=== PATIENT | female | born 1975 | race Caucasian/White ===

== ENCOUNTER 2018-07-28 14:53 | Inpatient (IN) | payer OTHER ==
--- NOTE | 2018-07-28 17:54 | PDOC ---
Attending Attestation - ED Attending Attestation I have performed the following: I have examined & evaluated the patient, The case was reviewed & discussed with the resident, I agree w/resident's findings & plan - Physicial Exam PE: 07/28/18 20:06 GENERAL: Well-appearing, well-nourished. No apparent distress. HEENT: Normocephalic, atraumatic. PERRL, EOM intact. CARDIOVASCULAR: Normal S1, S2. Regular rate and rhythm. PULMONARY: Clear to auscultation bilaterally. +ABDOMEN: Protuberant with mildly erythematous panis. Soft, non-distended, non-tender. +EXTREMITIES: Left thigh: Extensive nonhealing left thigh wound with foul-smelling and purulent drainage. Extensive dry skin on blt LE with nonhealing ulcers on left lower calf. SKIN: Warm, dry. No rash NEUROLOGICAL: No focal neurological deficits. <Cody Torres - Last Filed: 07/28/18 20:15> - Resident Resident Name: Tomi Sauer - HPI HPI: 07/28/18 18:05 The patient is a 43 year old female, with a significant past medical history of morbid obesity, who presents to the emergency department from [facility] for complaint of an open, non healing wound to left lower extremity for about a month. She states she is on chronic Abx since March 2018. She states there is drainage and a foul odor to the wound. The patient denies chest pain, shortness of breath, headache and dizziness. The patient denies fever, chills, nausea, vomit, diarrhea and constipation. The patient denies dysuria, frequency, urgency and hematuria. Allergies: NKDA - Medical Decision Making 07/28/18 21:42 this pt has a nonhealing leg wound that had been treated by the wound care nurse at [facility] but there has been no improvement pt needs ID consult, IV antibiotics <Daniela Moore - Last Filed: 07/28/18 21:43> Attestations - Attestations 07/28/18 20:10 Documentation prepared by Cody Torres, acting as medical grade shoemaker for Daniela Moore MD. <Cody Torres - Last Filed: 07/28/18 20:15>
[2018-07-28] MEDS ORDERED: BACITRACIN 0.9 GM PACKET ONE (17:57)
[2018-07-28] MEDS ORDERED: CLINDAMYCIN 900 MG PREMIX IVPB 900 MG/50 ML BAG IVPB ONE ×2 (18:23→18:40)
[2018-07-28 18:28] LABS: BASO % 0.9 % (0-2.0); EOS % 1.5 % (0-4.5); HEMATOCRIT 33.9 % (32.4-45.2); HEMOGLOBIN 11.2 GM/dL (10.7-15.3); LYMPH % 26.8 % (8-40); MCHC 32.9 g/dl (32.0-36.0); MEAN CELL VOLUME 88.2 fl (80-96); MONO % 7.6 % (3.8-10.2); NEUT % 63.2 % (42.8-82.8); PLATELET COUNT 316 K/MM3 (134-434); RBC 3.85 M/mm3 (3.60-5.2); RDW 17.2 % (11.6-15.6); WHITE BLOOD COUNT 10.9 K/mm3 (4.0-10.0)
[2018-07-28] MEDS ORDERED: AZTREONAM 2 GM in DEXTROSE 5%-WATER 100 ML IVPB SCH (18:30)
[2018-07-28 19:00] LABS: ALBUMIN 2.5 g/dl (3.4-5.0); ALK PHOS 104 U/L (45-117); ANION GAP 6 MMOL/L (8-16); BILIRUBIN,TOTAL 0.2 mg/dL (0.2-1); BLOOD UREA NITROGEN 18 mg/dL (7-18); CALCIUM 8.6 mg/dL (8.5-10.1); CHLORIDE 94 mmol/L (98-107); CO2 36 mmol/L (21-32); CREATININE 0.7 mg/dL (0.55-1.3); GLUCOSE,RANDOM 130 mg/dL (74-106); POTASSIUM 5.2 mmol/L (3.5-5.1); SGOT/AST 21 U/L (15-37); SGPT/ALT 26 U/L (13-61); SODIUM 136 mmol/L (136-145); TOT PROT 6.4 g/dl (6.4-8.2)
[2018-07-28] MEDS ORDERED: ACETAMINOPHEN 500 MG TABLET (FP) PO STA (20:14)
[2018-07-28] MEDS ORDERED: ACETAMINOPHEN 325 MG TABLET (FP) ONE (20:16)
[2018-07-28] MEDS: AZTREONAM 2 GM in DEXTROSE 5%-WATER - 100 ML IVPB SCH (20:25)
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
[2018-07-28 22:12] LABS: URINE APPEARANCE SLCLOUDY; URINE BILIRUBIN NEGATIVE (<2.0 mg/dL); URINE COLOR AMBER; URINE GLUCOSE (UA) NEGATIVE (NEGATIVE); URINE KETONE TRACE (NEGATIVE); URINE LEUK ESTERASE 1+ (NEGATIVE); URINE NITRITE NEGATIVE (NEGATIVE); URINE PROTEIN 1+ (NEGATIVE); URINE UROBILINOGEN NEGATIVE mg/dL (0.2-1.0)
[2018-07-28 22:19] LABS: EPI CELLS MODERATE /HPF (FEW); URINE MUCUS MODERATE
[2018-07-28] MEDS ORDERED: ACETAMINOPHEN 325 MG TABLET (FP) PO PRN (23:24)
[2018-07-28] MEDS ORDERED: PATIENT'S OWN MEDICATION (NON-FORMULARY) (Cholecalciferol (Vitamin D3) [Vitamin D3] 50,000 PO SCH (23:30)
[2018-07-28] MEDS ORDERED: IBUPROFEN 200 MG TABLET PO SCH (23:30)
[2018-07-28] MEDS ORDERED: ASCORBIC ACID 250 MG TABLET (FP) PO SCH (23:30)
[2018-07-28] MEDS ORDERED: BACLOFEN 10 MG TABLET (FP) ONE (23:57)
[2018-07-28] MEDS ORDERED: DOCUSATE SODIUM 100 MG CAPSULE (FP) PO ONE (23:57)
[2018-07-28] MEDS ORDERED: HEPARIN NA (PORCINE) 5,000 UNITS/ML 1ML VIAL ONE (23:57)
[2018-07-29] MEDS ORDERED: IBUPROFEN 200 MG TABLET PO PRN (00:03)
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
[2018-07-29] MEDS: HEPARIN NA (PORCINE) 5,000 UNITS/ML 1ML VIAL SQ SCH ×4 (00:25→22:32)
[2018-07-29] MEDS: DIVALPROEX NA *ER* EXTEND REL 250 MG TABLET.SA PO SCH ×3 (00:25→12:10)
[2018-07-29] MEDS: BACLOFEN 10 MG TABLET (FP) PO SCH ×4 (00:45→22:33)
[2018-07-29] MEDS: DOCUSATE SODIUM 100 MG CAPSULE (FP) PO SCH ×3 (00:46→22:32)
[2018-07-29] MEDS: LURASIDONE HCL 20 MG TABLET PO SCH (02:16)
[2018-07-29] MEDS: AZTREONAM 2 GM in DEXTROSE 5%-WATER - 100 ML IVPB SCH ×2 (02:17→11:07)
[2018-07-29] MEDS ORDERED: LEVOTHYROXINE NA 25 MCG TABLET (FP) ONE (06:43)
[2018-07-29] MEDS ORDERED: HEPARIN NA (PORCINE) 5,000 UNITS/ML 1ML VIAL ONE (06:43)
[2018-07-29] MEDS ORDERED: CLINDAMYCIN 600MG PREMIX IVPB 600 MG/50 ML BAG IVPB ONE ×2 (06:44→10:39)
[2018-07-29] MEDS: LEVOTHYROXINE NA 50 MCG TABLET (FP) PO SCH (06:45)
[2018-07-29] MEDS: CLINDAMYCIN 600MG PREMIX IVPB 600 MG/50 ML BAG IVPB SCH ×3 (06:45→19:20)
[2018-07-29] MEDS: ALBUTEROL SO4 2.5/IPRATROPIUM 0.5 INH SOL 3 ML VIAL.NEB. NEB SCH ×4 (08:46→21:00)
[2018-07-29] MEDS ORDERED: PATIENT'S OWN MEDICATION (NON-FORMULARY) (Cholecalciferol (Vitamin D3) [Vitamin D3] 50,000 PO SCH (09:00)
[2018-07-29] MEDS ORDERED: LACTOBACILLUS ACIDOPHILUS 1 TABLET PO SCH (10:00)
[2018-07-29] MEDS ORDERED: FUROSEMIDE 40 MG TABLET (FP) PO SCH (10:00)
[2018-07-29] MEDS ORDERED: BUDESONIDE/FORMETEROL FUMARATE 160/4.5 mcg INHALER IH SCH (10:00)
[2018-07-29] MEDS ORDERED: ASCORBIC ACID 250 MG TABLET (FP) PO SCH (10:00)
[2018-07-29] MEDS ORDERED: LURASIDONE HCL 20 MG TABLET PO SCH (10:00)
[2018-07-29] MEDS ORDERED: ALLOPURINOL 300 MG TABLET (FP) PO SCH (10:00)
--- NOTE | 2018-07-29 10:05 | PN ---
Progress Note, Physician Chief Complaint: Examined pt in ER Has pain in left leg events noted was on Tigecycline and [place] has a midline on rt arm ' - Current Medication List Current Medications: Active Medications Acetaminophen (Tylenol -) 650 mg PO Q6H PRN PRN Reason: PAIN LEVEL 6-10 Albuterol/Ipratropium (Duoneb -) 1 amp NEB RQID [facility] Last Admin: 07/29/18 08:46 Dose: Not Given Allopurinol (Zyloprim -) 300 mg PO DAILY@1630 [facility] Aripiprazole (Abilify) 10 mg PO DAILY [facility] Ascorbic Acid (Vitamin C -) 250 mg PO We@1000 [facility] Atorvastatin Calcium (Lipitor -) 10 mg PO HS [facility] Baclofen (Lioresal -) 10 mg PO TID [facility] Last Admin: 07/29/18 06:45 Dose: 10 mg Budesonide/Formoterol Fumarate (Symbicort 160/4.5mcg -) 1 puff IH BID [facility] Divalproex Sodium (Depakote *Er* -) 250 mg PO BID [facility] Last Admin: 07/29/18 00:25 Dose: 250 mg Docusate Sodium (Colace -) 100 mg PO BID [facility] Last Admin: 07/29/18 00:46 Dose: Not Given Furosemide (Lasix -) 80 mg PO DAILY [facility] Heparin Sodium (Porcine) (Heparin -) 5,000 unit SQ TID [facility] Last Admin: 07/29/18 06:45 Dose: 5,000 unit Hydrochlorothiazide (Hctz -) 12.5 mg PO DAILY [facility] Aztreonam 2 gm/ Dextrose 100 mls @ 200 mls/hr IVPB Q8H-IV [facility] Stop: 07/29/18 10:29 Last Admin: 07/29/18 02:17 Dose: 200 mls/hr Aztreonam 2 gm/ Dextrose 100 mls @ 100 mls/hr IVPB Q8H-IV [facility]; Protocol Clindamycin Phosphate (Cleocin 600 Mg Premix Ivpb -) 600 mg in 50 mls @ 100 mls /hr IVPB Q8H-IV [facility]; Protocol Last Admin: 07/29/18 06:45 Dose: 100 mls/hr Ibuprofen (Advil -) 200 mg PO BID PRN PRN Reason: PAIN LEVEL 7 - 10 Lactobacillus Acidophilus (Bacid -) 1 tab PO DAILY@1630 [facility] Levothyroxine Sodium (Synthroid -) 50 mcg PO DAILY@0700 [facility] Last Admin: 07/29/18 06:45 Dose: 50 mcg Lurasidone HCl (Latuda -) 60 mg PO DAILY@1800 [facility] Last Admin: 07/29/18 02:16 Dose: 60 mg Metoprolol Tartrate (Lopressor -) 25 mg PO DAILY [facility] Non-Formulary Medication (Cholecalciferol (Vitamin D3) [Vitamin D3]) 50,000 units PO WEEKLY [facility] Ranitidine HCl (Zantac -) 150 mg PO DAILY [facility] Senna (Senna -) 2 tab PO HS [facility] - Objective Vital Signs: Vital Signs Temperature 97.3 F L 07/29/18 07:22 Pulse Rate 70 07/29/18 07:22 Respiratory Rate 15 07/29/18 07:22 Blood Pressure 148/84 07/29/18 07:22 O2 Sat by Pulse Oximetry (%) 100 07/29/18 07:40 Constitutional: Yes: No Distress, Calm Cardiovascular: Yes: Regular Rate and Rhythm Respiratory: Yes: Diminished Gastrointestinal: Yes: Normal Bowel Sounds, Soft, Abdomen, Obese. No: Tenderness Extremities: Yes: Other (lymphedema+ B/L. open wound left leg , erythema, foul smelling discharge) Edema: Yes Neurological: Yes: Alert, Oriented Labs: CBC, BMP 07/28/18 18:16 Problem List - Problems (1) Diabetes type 2, uncontrolled Code(s): E11.65 - TYPE 2 DIABETES MELLITUS WITH HYPERGLYCEMIA (2) Bipolar 2 disorder, major depressive episode Code(s): F31.81 - BIPOLAR II DISORDER (3) Hyperlipidemia Code(s): E78.5 - HYPERLIPIDEMIA, UNSPECIFIED (4) Hypothyroid Code(s): E03.9 - HYPOTHYROIDISM, UNSPECIFIED (5) Leg wound, left Code(s): S81.802A - UNSPECIFIED OPEN WOUND, LEFT LOWER LEG, INITIAL ENCOUNTER (6) Non-healing wound Code(s): LYG5222 - (7) Cellulitis Code(s): L03.90 - CELLULITIS, UNSPECIFIED Qualifiers: Site of cellulitis: trunk Site of cellulitis of trunk: abdominal wall Qualified Code(s): L03.311 - Cellulitis of abdominal wall (8) HTN (hypertension) Code(s): I10 - ESSENTIAL (PRIMARY) HYPERTENSION (9) Obesities, morbid Code(s): E66.01 - MORBID (SEVERE) OBESITY DUE TO EXCESS CALORIES Assessment/Plan PLAN Cultures done ID eval IV antibiotics Wound care evaluation off loading that side she has new diabetes- A1C 7.2- will start metformin, check BGM Add Bacid continue with meds
[2018-07-29 10:17] LABS: ALBUMIN 2.4 g/dl (3.4-5.0); ALK PHOS 96 U/L (45-117); ANION GAP 6 MMOL/L (8-16); BILIRUBIN,TOTAL 0.2 mg/dL (0.2-1); BLOOD UREA NITROGEN 18 mg/dL (7-18); CALCIUM 7.8 mg/dL (8.5-10.1); CHLORIDE 98 mmol/L (98-107); CHOLESTEROL 165 mg/dL (50-200); CO2 35 mmol/L (21-32); CREATININE 0.6 mg/dL (0.55-1.3); GLUCOSE,RANDOM 155 mg/dL (74-106); HDL CHOLESTEROL 45 mg/dL (40-60); MAGNESIUM 2.3 mg/dL (1.8-2.4); N-TERMINAL BNP 56.9 pg/ml (5-125); PHOSPHOROUS 4.5 mg/dL (2.5-4.9); SGOT/AST 19 U/L (15-37); SGPT/ALT 21 U/L (13-61); SODIUM 138 mmol/L (136-145); TOT PROT 6.3 g/dl (6.4-8.2); TRIGLYCERIDES 218 mg/dL (0-150)
[2018-07-29] MEDS: ARIPiprazole 10 MG TABLET PO SCH (10:47)
[2018-07-29] MEDS: RANITIDINE HCL 150 MG TABLET (FP) PO SCH (10:47)
[2018-07-29] MEDS ORDERED: AZTREONAM 2 GM in DEXTROSE 5%-WATER 100 ML IVPB ONE (11:00)
[2018-07-29] MEDS: BUDESONIDE/FORMETEROL FUMARATE 160/4.5 mcg INHALER IH SCH ×2 (11:07→22:30)
[2018-07-29 11:33] LABS: BASO % 0.7 % (0-2.0); EOS % 2.4 % (0-4.5); HEMATOCRIT 30.7 % (32.4-45.2); LYMPH % 32.5 % (8-40); MCH 28.5 pg (25.7-33.7); MCHC 32.5 g/dl (32.0-36.0); MEAN CELL VOLUME 87.5 fl (80-96); MEAN PLT VOLUME 7.8 fl (7.5-11.1); MONO % 9.1 % (3.8-10.2); NEUT % 55.3 % (42.8-82.8); PLATELET COUNT 281 K/MM3 (134-434); RBC 3.51 M/mm3 (3.60-5.2); RDW 17.2 % (11.6-15.6); WHITE BLOOD COUNT 6.8 K/mm3 (4.0-10.0)
[2018-07-29 11:48] LABS: PROTHROMBIN TIME (PATIENT) 11.8 SEC (9.7-13.0)
[2018-07-29 11:50] LABS: ACTIVATED PTT 30.5 SECONDS (25.2-36.5)
--- NOTE | 2018-07-29 12:39 | EKG ---
Test Reason : Blood Pressure : / mmHG Vent. Rate : 075 BPM Atrial Rate : 258 BPM P-R Int : 000 ms QRS Dur : 108 ms QT Int : 378 ms P-R-T Axes : 000 082 070 degrees QTc Int : 422 ms ACCELERATED JUNCTIONAL RHYTHM ABNORMAL ECG WHEN COMPARED WITH ECG OF 15-MAR-2015 12:35, JUNCTIONAL RHYTHM HAS REPLACED SINUS RHYTHM NONSPECIFIC T WAVE ABNORMALITY NO LONGER EVIDENT IN INFERIOR LEADS Confirmed by CLAUDETTE BURRIS, ALEC ([id number]) on 07/29/2018 12:39:33 PM Referred By: Confirmed By:ALEC WILKINS MD
[2018-07-29] MEDS: DIVALPROEX SODIUM 250 MG TABLET E.C. PO SCH ×2 (12:59→22:32)
[2018-07-29] MEDS ORDERED: ACETAMINOPHEN 325 MG TABLET (FP) ONE (13:04)
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
[2018-07-29] MEDS: ACETAMINOPHEN 325 MG TABLET (FP) PO PRN (13:07)
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
[2018-07-29] MEDS: metFORMIN HCL 500 MG TABLET (FP) PO SCH (15:46)
[2018-07-29] MEDS: HYDROCHLOROTHIAZIDE 12.5 MG CAPSULE (FP) PO SCH (15:46)
[2018-07-29] MEDS: ALLOPURINOL 300 MG TABLET (FP) PO SCH (15:46)
[2018-07-29] MEDS: FUROSEMIDE 40 MG/4 ML INJECTABLE VIAL IVPUSH SCH (15:47)
[2018-07-29] MEDS: METOPROLOL TARTRATE 25 MG TABLET (FP) PO SCH (15:48)
[2018-07-29] MEDS: LACTOBACILLUS ACIDOPHILUS 1 TABLET PO SCH (15:49)
--- NOTE | 2018-07-29 16:55 | PN ---
Progress Note (short form) - Note Progress Note: ID consult dictated 605 pound lady- bed bound sent from [place] with erythema of the LLE for last several weeks and nonhealing wound she is allergic to penicillin (anaphylaxis) she has had intermittent cellulitis of the left leg since Thanks she has been on intermittent antiibotics since that time most recently she has been on tygacil and ceftriaxone- the original order date is 07/11 stopped and restarted about 10 days ago she reports high grade fevers several weeks ago and blisters on the leg- the ceftriaxone and tygacil were resumed and she reports the leg erythema is better she notes a rash on her abdomen and thighs that started yesterday at the ma it is itchy she was sent for evaluation of the wounds I spoke with Dr Mccurdy who [place] he reports she gets intermittent erythema of the left leg and is placed on tygacil and ceftriaxone with improvement several weeks after the antibioitics are stopped the erythema recurs and the antibiotics are restarted IBS with chronic diarrhea no fevers history of MRSA continue contact isolation recurrent cellulitis chronic leg wound morbid obesity clindamycin for now f/u cultures f/u wound care reccd having diarrhea- check cdiff- history antibiotic use but also has IBS rash- ?drug rash,?fungal, lotrimin cream Problem List - Problems (1) Cellulitis Code(s): L03.90 - CELLULITIS, UNSPECIFIED Qualifiers: Site of cellulitis: trunk Site of cellulitis of trunk: abdominal wall Qualified Code(s): L03.311 - Cellulitis of abdominal wall (2) Non-healing wound Code(s): ZGM0773 - (3) Obesities, morbid Code(s): E66.01 - MORBID (SEVERE) OBESITY DUE TO EXCESS CALORIES (4) Penicillin allergy Code(s): Z88.0 - ALLERGY STATUS TO PENICILLIN
[2018-07-29] MEDS ORDERED: FENTANYL PATCH WASTE MC PRN (18:37)
[2018-07-29] MEDS ORDERED: fentaNYL 25mcg/hr PATCH.TD72 TD SCH (18:45)
[2018-07-29] MEDS ORDERED: PT OWN MED DRAWER 7, Y5N ONE (19:17)
[2018-07-29] MEDS ORDERED: SENNOSIDES 8.6MG TABLET (FP) PO SCH (22:00)
[2018-07-29] MEDS ORDERED: ATORVASTATIN CA 10 MG TABLET (FP) PO SCH (22:00)
[2018-07-29] MEDS: CLOTRIMAZOLE 1% 10 ML TOPICAL SOLUTION TP SCH ×2 (22:30→23:07)
[2018-07-30] MEDS: ACETAMINOPHEN 325 MG TABLET (FP) PO PRN ×2 (00:15→10:45)
[2018-07-30] MEDS: CLINDAMYCIN 600MG PREMIX IVPB 600 MG/50 ML BAG IVPB SCH ×3 (02:36→18:06)
[2018-07-30] MEDS: INSULIN SLIDING SCALE (NOVOLOG) 1 VIAL SQ SCH ×3 (06:29→18:06)
[2018-07-30] MEDS: HEPARIN NA (PORCINE) 5,000 UNITS/ML 1ML VIAL SQ SCH ×3 (06:36→21:12)
[2018-07-30] MEDS: FUROSEMIDE 40 MG/4 ML INJECTABLE VIAL IVPUSH SCH ×2 (06:36→14:18)
[2018-07-30] MEDS: metFORMIN HCL 500 MG TABLET (FP) PO SCH ×2 (06:37→16:23)
[2018-07-30] MEDS: BACLOFEN 10 MG TABLET (FP) PO SCH ×3 (06:37→21:12)
[2018-07-30] MEDS: LEVOTHYROXINE NA 50 MCG TABLET (FP) PO SCH (06:37)
[2018-07-30] MEDS: ALBUTEROL SO4 2.5/IPRATROPIUM 0.5 INH SOL 3 ML VIAL.NEB. NEB SCH ×4 (08:00→20:47)
[2018-07-30] MEDS ORDERED: PT OWN MED DRAWER 7, Y5N ONE ×2 (09:52→18:54)
[2018-07-30] MEDS: HYDROCHLOROTHIAZIDE 12.5 MG CAPSULE (FP) PO SCH (10:16)
[2018-07-30] MEDS: METOPROLOL TARTRATE 25 MG TABLET (FP) PO SCH (10:16)
[2018-07-30] MEDS: RANITIDINE HCL 150 MG TABLET (FP) PO SCH (10:16)
[2018-07-30] MEDS: DIVALPROEX SODIUM 250 MG TABLET E.C. PO SCH ×2 (10:16→21:12)
[2018-07-30] MEDS: ARIPiprazole 10 MG TABLET PO SCH (10:17)
[2018-07-30] MEDS: BUDESONIDE/FORMETEROL FUMARATE 160/4.5 mcg INHALER IH SCH ×2 (10:18→22:40)
[2018-07-30] MEDS: DOCUSATE SODIUM 100 MG CAPSULE (FP) PO SCH ×2 (10:18→21:15)
[2018-07-30] MEDS: CLOTRIMAZOLE 1% 10 ML TOPICAL SOLUTION TP SCH ×2 (10:19→22:41)
--- NOTE | 2018-07-30 11:08 | PN ---
Progress Note (short form) - Note Progress Note: complains of pain on the left leg, Tylenol not helping and the fentanyl patch is not helping either Vital Signs - 24 hr 07/29/18 07/29/18 07/29/18 14:23 15:00 21:00 Temperature 97.3 F L 97.7 F Pulse Rate 88 Pulse Rate [ 90 Right Radial] Respiratory 18 20 20 Rate Blood Pressure 106/72 Blood Pressure 135/90 [Left Arm] O2 Sat by Pulse 100 98 Oximetry (%) 07/29/18 07/30/18 07/30/18 22:00 01:28 06:00 Temperature 97.8 F 98.2 F 97.9 F Pulse Rate 86 88 71 Pulse Rate [ Right Radial] Respiratory 20 20 20 Rate Blood Pressure 103/61 126/70 135/55 L Blood Pressure [Left Arm] O2 Sat by Pulse Oximetry (%) 07/30/18 07/30/18 09:00 10:00 Temperature 98.6 F Pulse Rate 80 Pulse Rate [ Right Radial] Respiratory 20 Rate Blood Pressure 126/79 Blood Pressure [Left Arm] O2 Sat by Pulse 99 Oximetry (%) Current Medications Generic Name Dose Route Start Last Admin Trade Name Freq PRN Reason Stop Dose Admin Acetaminophen 650 mg 07/29/18 00:02 07/30/18 10:45 Tylenol - PO 650 mg Q6H PRN Administration PAIN LEVEL 6-10 Albuterol/Ipratropium 1 amp 07/29/18 08:00 07/29/18 21:00 Duoneb - NEB Not Given RQID [facility] Allopurinol 300 mg 07/29/18 01:41 07/29/18 15:46 Zyloprim - PO 300 mg DAILY@1630 [facility] Administration Aripiprazole 10 mg 07/29/18 10:00 07/30/18 10:17 Abilify PO 10 mg DAILY [facility] Administration Ascorbic Acid 250 mg 07/29/18 10:00 07/29/18 10:47 Vitamin C - PO 250 mg We@1000 [facility] Administration Atorvastatin Calcium 10 mg 07/29/18 22:00 07/29/18 22:34 Lipitor - PO 10 mg HS [facility]ERSON Administration Baclofen 10 mg 07/28/18 23:30 07/30/18 06:37 Lioresal - PO 10 mg TID [facility] Administration Budesonide/Formoterol Fumarate 1 puff 07/29/18 10:00 07/30/18 10:18 Symbicort 160/4.5mcg - IH 1 puff BID [facility] Administration Clotrimazole 1 applic 07/29/18 22:00 07/30/18 10:19 Clotrimazole TP 1 applic BID [facility] Administration Diphenhydramine HCl 25 mg 07/30/18 11:23 Benadryl - PO Q6H PRN FOR ITCHING Divalproex Sodium 250 mg 07/29/18 12:15 07/30/18 10:16 Depakote - PO 250 mg BID [facility] Administration Docusate Sodium 100 mg 07/28/18 23:45 07/30/18 10:18 Colace - PO Not Given BID [facility] Fentanyl 1 patch 07/29/18 18:45 07/29/18 19:20 Duragesic 25mcg Patch - TD 08/05/18 18:37 1 patch Q72H [facility] Administration Furosemide 40 mg 07/29/18 14:00 07/30/18 06:36 Lasix Injection - IVPUSH 40 mg BID@0600,1400 [facility] Administration Heparin Sodium (Porcine) 5,000 unit 07/28/18 23:45 07/30/18 06:36 Heparin - SQ 5,000 unit TID [facility] Administration Hydrochlorothiazide 12.5 mg 07/29/18 14:00 07/30/18 10:16 Hctz - PO 12.5 mg DAILY [facility] Administration Clindamycin Phosphate 600 mg in 50 mls @ 100 mls/hr 07/29/18 02:00 07/30/18 10:17 Cleocin 600 Mg Premix Ivpb - IVPB 100 mls/hr Q8H-IV [facility] Administration Protocol Ibuprofen 200 mg 07/29/18 00:03 07/29/18 15:52 Advil - PO 200 mg BID PRN Administration PAIN LEVEL 7 - 10 Insulin Aspart 1 vial 07/29/18 16:30 07/30/18 06:29 Novolog Vial Sliding Scale - SQ Not Given TIDAC [facility] Protocol Lactobacillus Acidophilus 1 tab 07/29/18 01:44 07/29/18 15:49 Bacid - PO 1 tab DAILY@1630 [facility] Administration Levothyroxine Sodium 50 mcg 07/29/18 07:00 07/30/18 06:37 Synthroid - PO 50 mcg DAILY@0700 [facility] Administration Lurasidone HCl 60 mg 07/29/18 01:45 07/29/18 02:16 Latuda - PO 60 mg DAILY@1800 [facility] Administration Metformin HCl 500 mg 07/29/18 16:30 07/30/18 06:37 Glucophage - PO 500 mg BID@0700,1630 [facility] Administration Metoprolol Tartrate 25 mg 07/29/18 14:00 07/30/18 10:16 Lopressor - PO 25 mg DAILY [facility] Administration Miscellaneous 1 each 07/29/18 18:37 Duragesic Patch Waste MC PRN PRN PAIN Non-Formulary Medication 50,000 units 07/29/18 09:00 Cholecalciferol (Vitamin D3) [Vitamin D3] PO WEEKLY [facility] Oxycodone HCl 10 mg 07/30/18 11:23 Roxicodone - PO Q6H PRN PAIN LEVEL 6-10 Ranitidine HCl 150 mg 07/29/18 10:00 07/30/18 10:16 Zantac - PO 150 mg DAILY [facility] Administration Senna 2 tab 07/29/18 22:00 07/29/18 22:36 Senna - PO Not Given HS [facility] Laboratory Results - last 24 hr 07/30/18 07/30/18 05:25 12:11 POC Glucometer 136 185 S1 and S2 regular Lungs decreased Patient is morbidly obese Abdomen is soft, obese nontender Lymphedema bilaterally, dressing noted on the left leg Plan IV antibiotics per infectious disease Surgery rebound noted, no debridement or any other interventions, dressing changes noted Add oxycodone for pain relief Continued medications DVT prophylaxis Patient has chronic diarrhea, suffers from irritable bowel syndrome Problem List - Problems (1) Diabetes type 2, uncontrolled Code(s): E11.65 - TYPE 2 DIABETES MELLITUS WITH HYPERGLYCEMIA (2) Bipolar 2 disorder, major depressive episode Code(s): F31.81 - BIPOLAR II DISORDER (3) Hyperlipidemia Code(s): E78.5 - HYPERLIPIDEMIA, UNSPECIFIED (4) Hypothyroid Code(s): E03.9 - HYPOTHYROIDISM, UNSPECIFIED (5) Leg wound, left Code(s): S81.802A - UNSPECIFIED OPEN WOUND, LEFT LOWER LEG, INITIAL ENCOUNTER (6) Non-healing wound Code(s): [id number] - (7) Cellulitis Code(s): L03.90 - CELLULITIS, UNSPECIFIED Qualifiers: Site of cellulitis: trunk Site of cellulitis of trunk: abdominal wall Qualified Code(s): L03.311 - Cellulitis of abdominal wall (8) HTN (hypertension) Code(s): I10 - ESSENTIAL (PRIMARY) HYPERTENSION (9) Obesities, morbid Code(s): E66.01 - MORBID (SEVERE) OBESITY DUE TO EXCESS CALORIES
[2018-07-30] MEDS ORDERED: oxyCODONE HCL 5 MG TABLET PO PRN (11:23)
[2018-07-30] MEDS ORDERED: diphenhydrAMINE HCL 25 MG CAPSULE (FP) PO PRN (11:23)
[2018-07-30] MEDS: ALLOPURINOL 300 MG TABLET (FP) PO SCH (16:23)
[2018-07-30] MEDS: LACTOBACILLUS ACIDOPHILUS 1 TABLET PO SCH (16:23)
[2018-07-30] MEDS: LURASIDONE HCL 20 MG TABLET PO SCH (18:18)
[2018-07-30] MEDS ORDERED: IBUPROFEN 200 MG TABLET PO PRN (18:53)
[2018-07-30] MEDS ORDERED: FENTANYL PATCH WASTE MC PRN (18:53)
[2018-07-30] MEDS: oxyCODONE HCL 5 MG TABLET PO PRN (20:49)
[2018-07-30] MEDS: ATORVASTATIN CA 10 MG TABLET (FP) PO SCH (21:12)
[2018-07-30] MEDS: SENNOSIDES 8.6MG TABLET (FP) PO SCH (21:15)
[2018-07-31] MEDS: diphenhydrAMINE HCL 25 MG CAPSULE (FP) PO PRN ×4 (00:17→22:05)
[2018-07-31] MEDS: CLINDAMYCIN 600MG PREMIX IVPB 600 MG/50 ML BAG IVPB SCH ×3 (01:31→17:29)
[2018-07-31] MEDS: BACLOFEN 10 MG TABLET (FP) PO SCH ×3 (05:43→21:30)
[2018-07-31] MEDS: FUROSEMIDE 40 MG/4 ML INJECTABLE VIAL IVPUSH SCH ×2 (05:43→13:26)
[2018-07-31] MEDS: HEPARIN NA (PORCINE) 5,000 UNITS/ML 1ML VIAL SQ SCH ×3 (05:43→21:35)
[2018-07-31] MEDS: oxyCODONE HCL 5 MG TABLET PO PRN ×3 (05:51→20:00)
[2018-07-31] MEDS: LEVOTHYROXINE NA 50 MCG TABLET (FP) PO SCH (06:25)
[2018-07-31] MEDS ORDERED: metFORMIN HCL 500 MG TABLET (FP) PO SCH (07:00)
[2018-07-31] MEDS: INSULIN SLIDING SCALE (NOVOLOG) 1 VIAL SQ SCH ×3 (07:16→16:10)
[2018-07-31 07:41] LABS: BASO % 0.8 % (0-2.0); EOS % 2.1 % (0-4.5); HEMATOCRIT 30.6 % (32.4-45.2); HEMOGLOBIN 10.2 GM/dL (10.7-15.3); LYMPH % 38.2 % (8-40); MCH 29.6 pg (25.7-33.7); MCHC 33.4 g/dl (32.0-36.0); MEAN CELL VOLUME 88.8 fl (80-96); MONO % 9.2 % (3.8-10.2); NEUT % 49.7 % (42.8-82.8); PLATELET COUNT 288 K/MM3 (134-434); RBC 3.44 M/mm3 (3.60-5.2); RDW 17.1 % (11.6-15.6); WHITE BLOOD COUNT 8.1 K/mm3 (4.0-10.0)
[2018-07-31] MEDS: ALBUTEROL SO4 2.5/IPRATROPIUM 0.5 INH SOL 3 ML VIAL.NEB. NEB SCH ×4 (08:05→20:15)
[2018-07-31 08:14] LABS: ANION GAP 5 MMOL/L (8-16); BLOOD UREA NITROGEN 9 mg/dL (7-18); CALCIUM 8.3 mg/dL (8.5-10.1); CHLORIDE 92 mmol/L (98-107); CO2 43 mmol/L (21-32); CREATININE 0.6 mg/dL (0.55-1.3); GLUCOSE,RANDOM 132 mg/dL (74-106); POTASSIUM 3.8 mmol/L (3.5-5.1); SODIUM 140 mmol/L (136-145)
[2018-07-31] MEDS ORDERED: PT OWN MED DRAWER 7, Y5N ONE ×2 (09:36→18:34)
[2018-07-31] MEDS: METOPROLOL TARTRATE 25 MG TABLET (FP) PO SCH (09:40)
[2018-07-31] MEDS: RANITIDINE HCL 150 MG TABLET (FP) PO SCH (09:40)
[2018-07-31] MEDS: HYDROCHLOROTHIAZIDE 12.5 MG CAPSULE (FP) PO SCH (09:40)
[2018-07-31] MEDS: DOCUSATE SODIUM 100 MG CAPSULE (FP) PO SCH ×3 (09:40→23:02)
[2018-07-31] MEDS: ARIPiprazole 10 MG TABLET PO SCH (09:42)
[2018-07-31] MEDS: DIVALPROEX SODIUM 250 MG TABLET E.C. PO SCH ×2 (09:43→21:30)
[2018-07-31] MEDS: CLOTRIMAZOLE 1% 10 ML TOPICAL SOLUTION TP SCH ×2 (09:44→21:30)
[2018-07-31] MEDS: BUDESONIDE/FORMETEROL FUMARATE 160/4.5 mcg INHALER IH SCH ×2 (09:44→21:35)
[2018-07-31] MEDS: ACETAMINOPHEN 325 MG TABLET (FP) PO PRN ×2 (10:06→17:31)
--- NOTE | 2018-07-31 10:42 | PN ---
Progress Note (short form) - Note Progress Note: pt seen/ examined chart reviewed awake/ comfortable pain much better Vital Signs Temp 98 F 07/31/18 06:44 Pulse 72 07/31/18 06:44 Resp 20 07/31/18 06:44 BP 136/72 07/31/18 06:44 Pulse Ox 99 07/30/18 21:00 Intake & Output 07/30/18 07/30/18 07/31/18 11:59 23:59 11:59 Intake Total 360 50 Output Total 1600 700 450 Balance -1240 -700 -400 Weight 603 lb 3.2 oz 581 lb 6 oz Intake: IV 10 JESSICA MIDLINE 10 IVPB 50 Oral 350 Output: Urine 1600 700 450 Butler 1600 700 450 Other: Voiding Method Indwelling Catheter Indwelling Catheter Bowel Movement No Yes No # Bowel Movements 1 Weight Measurement Method Built in Bedscale Built in Bedscale Active Medications Acetaminophen (Tylenol -) 650 mg PO Q6H PRN PRN Reason: PAIN LEVEL 6-10 Last Admin: 07/31/18 10:06 Dose: 650 mg Albuterol/Ipratropium (Duoneb -) 1 amp NEB RQID ON LICENSE OF [facility] Last Admin: 07/31/18 08:05 Dose: Not Given Allopurinol (Zyloprim -) 300 mg PO DAILY@1630 ON LICENSE OF [facility] Aripiprazole (Abilify) 10 mg PO DAILY ON LICENSE OF [facility] Last Admin: 07/31/18 09:42 Dose: 10 mg Ascorbic Acid (Vitamin C -) 250 mg PO We@1000 ON LICENSE OF [facility] Atorvastatin Calcium (Lipitor -) 10 mg PO HS ON LICENSE OF [facility] Last Admin: 07/30/18 21:12 Dose: 10 mg Baclofen (Lioresal -) 10 mg PO TID ON LICENSE OF [facility] Last Admin: 07/31/18 05:43 Dose: 10 mg Budesonide/Formoterol Fumarate (Symbicort 160/4.5mcg -) 1 puff IH BID ON LICENSE OF [facility] Last Admin: 07/31/18 09:44 Dose: 1 puff Clotrimazole (Clotrimazole) 1 applic TP BID ON LICENSE OF [facility] Last Admin: 07/31/18 09:44 Dose: 1 applic Diphenhydramine HCl (Benadryl -) 25 mg PO Q6H PRN PRN Reason: FOR ITCHING Last Admin: 07/31/18 09:40 Dose: 25 mg Divalproex Sodium (Depakote -) 250 mg PO BID ON LICENSE OF [facility] Last Admin: 07/31/18 09:43 Dose: 250 mg Docusate Sodium (Colace -) 100 mg PO BID ON LICENSE OF [facility] Last Admin: 07/31/18 09:56 Dose: Not Given Ergocalciferol (Drisdol -) 50,000 unit PO We@1000 ON LICENSE OF [facility] Fentanyl (Duragesic 25mcg Patch -) 1 patch TD Q72H ON LICENSE OF [facility] Stop: 08/05/18 18:37 Furosemide (Lasix Injection -) 40 mg IVPUSH BID@0600,1400 ON LICENSE OF [facility] Last Admin: 07/31/18 05:43 Dose: 40 mg Heparin Sodium (Porcine) (Heparin -) 5,000 unit SQ TID ON LICENSE OF [facility] Last Admin: 07/31/18 05:43 Dose: 5,000 unit Hydrochlorothiazide (Hctz -) 12.5 mg PO DAILY ON LICENSE OF [facility] Last Admin: 07/31/18 09:40 Dose: 12.5 mg Clindamycin Phosphate (Cleocin 600 Mg Premix Ivpb -) 600 mg in 50 mls @ 100 mls /hr IVPB Q8H-IV ON LICENSE OF [facility]; Protocol Last Admin: 07/31/18 09:40 Dose: 100 mls/hr Ibuprofen (Advil -) 200 mg PO Q12H PRN PRN Reason: PAIN LEVEL 4-6 Insulin Aspart (Novolog Vial Sliding Scale -) 1 vial SQ TIDAC ON LICENSE OF [facility]; Protocol Last Admin: 07/31/18 07:16 Dose: Not Given Lactobacillus Acidophilus (Bacid -) 1 tab PO DAILY@1630 ON LICENSE OF [facility] Levothyroxine Sodium (Synthroid -) 50 mcg PO DAILY@0700 ON LICENSE OF [facility] Last Admin: 07/31/18 06:25 Dose: 50 mcg Lurasidone HCl (Latuda -) 60 mg PO DAILY@1800 ON LICENSE OF [facility] Metformin HCl (Glucophage -) 500 mg PO BID@0700,1630 ON LICENSE OF [facility] Last Admin: 07/31/18 06:20 Dose: 500 mg Metoprolol Tartrate (Lopressor -) 25 mg PO DAILY ON LICENSE OF [facility] Last Admin: 07/31/18 09:40 Dose: 25 mg Miscellaneous (Duragesic Patch Waste) 1 each TD PRN PRN PRN Reason: PAIN Oxycodone HCl (Roxicodone -) 10 mg PO Q6H PRN PRN Reason: PAIN LEVEL 7-10 Last Admin: 07/31/18 05:51 Dose: 10 mg Ranitidine HCl (Zantac -) 150 mg PO DAILY ON LICENSE OF [facility] Last Admin: 07/31/18 09:40 Dose: 150 mg Senna (Senna -) 2 tab PO HS ON LICENSE OF [facility] Last Admin: 07/30/18 21:15 Dose: Not Given CBC, BMP 07/31/18 06:00 07/31/18 06:00 ekg- Junctional rhythm. Physical exam Awake/ Morbidly Obese. S1 and S2 regular Lungs decreased Abdomen is soft, obese nontender LLE-- eythema/ wound Plan IV antibiotics Surgery rebound noted, no debridement or any other interventions, dressing changes noted pain better echo reviewed Continued medications DVT prophylaxis check tsh d/c metformin add basal insulin dvt prophylaxis will follow Problem List - Problems (1) Diabetes type 2, uncontrolled Code(s): E11.65 - TYPE 2 DIABETES MELLITUS WITH HYPERGLYCEMIA (2) Bipolar 2 disorder, major depressive episode Code(s): F31.81 - BIPOLAR II DISORDER (3) Hyperlipidemia Code(s): E78.5 - HYPERLIPIDEMIA, UNSPECIFIED (4) Hypothyroid Code(s): E03.9 - HYPOTHYROIDISM, UNSPECIFIED (5) Leg wound, left Code(s): S81.802A - UNSPECIFIED OPEN WOUND, LEFT LOWER LEG, INITIAL ENCOUNTER (6) Non-healing wound Code(s): [id number] - (7) Cellulitis Code(s): L03.90 - CELLULITIS, UNSPECIFIED Qualifiers: Site of cellulitis: trunk Site of cellulitis of trunk: abdominal wall Qualified Code(s): L03.311 - Cellulitis of abdominal wall (8) HTN (hypertension) Code(s): I10 - ESSENTIAL (PRIMARY) HYPERTENSION (9) Obesities, morbid Code(s): E66.01 - MORBID (SEVERE) OBESITY DUE TO EXCESS CALORIES
--- NOTE | 2018-07-31 13:45 | PN ---
Progress Note (short form) - Note Progress Note: leg is no better, no worse some erythema with serous drainage, thigh wound is clean no fevers Vital Signs Period Temp Pulse Resp BP Sys/Marr Pulse Ox Last 24 Hr 98 F-98.0 F 72-75 18-20 124-136/70-72 99-99 cor-rrr lungs clear abd soft,nt ext left foot with erythema, verrucous thickened skin along lateral aspect of the left leg, serou drainage,foulsmelling thigh wound is clean rash is drying CBC, BMP 07/31/18 06:00 07/31/18 06:00 Microbiology 07/30/18 12:50 Cellulitis MRSA Screen - Final Mr S Aureus 07/28/18 18:16 Blood - Peripheral Venous Blood Culture - Preliminary NO GROWTH OBTAINED AFTER 48 HOURS, INCUBATION TO CONTINUE FOR 3 DAYS. 07/28/18 18:16 Blood - Peripheral Venous Blood Culture - Preliminary NO GROWTH OBTAINED AFTER 48 HOURS, INCUBATION TO CONTINUE FOR 3 DAYS. 07/28/18 21:25 Urine - Urine Butler Urine Culture - Final NO GROWTH OBTAINED a/p recurrent cellulitis history of MRSA was on tygacil and ceftriaxone at [place] now on clindamycin chronic leg wound morbid obesity f/u cultures f/u wound care reccd-hace asked wound care to evaluate having diarrhea- check cdiff- history antibiotic use but also has IBS rash- ?fungal- drying with the lotrimin
[2018-07-31] MEDS: ALLOPURINOL 300 MG TABLET (FP) PO SCH (16:09)
[2018-07-31] MEDS ORDERED: LACTOBACILLUS ACIDOPHILUS 1 TABLET PO SCH (16:30)
[2018-07-31 16:32] VITALS: BMI 70.7
[2018-07-31] MEDS: LURASIDONE HCL 20 MG TABLET PO SCH (17:29)
[2018-07-31] MEDS: ATORVASTATIN CA 10 MG TABLET (FP) PO SCH (21:30)
--- NOTE | 2018-07-31 22:40 | CONS ---
DATE OF CONSULTATION: DATE OF DICTATION: 07/31/2018 REQUESTING PHYSICIAN: Liseth Reyez MD HISTORY: This is a 43-year-old woman with morbid obesity, hypertension, hypothyroidism, depression, bipolar disorder. She is nonambulatory. She is wheelchair bound due to traumatic injury. She has currently been residing at the half-way. She last year had a cellulitis of her right leg that resolved. She reports that since around she has had recurrent cellulitis of the left leg. She has an open area on the upper aspect of the leg. She has been followed by her half-way doctor, and by wound care at the half-way. She reports that she is placed on IV antibiotics for several weeks, though her leg gets better, the antibiotics get stopped, and the leg worsens again, and it get resumed. She reports this has been the pattern now for the last several months. I spoke to her primary doctor at the half-way who confirms this. He states that she was seen once by ID at the half-way and placed on tigecycline and ceftriaxone, and he has used this regimen several times over every time her cellulitis flares. She reports about 10 days ago that she had fever and again recurrent cellulitis and was placed on this regimen with improvement. She was sent to the emergency room for further evaluation. In the ER, she was afebrile. I received a call from the emergency room doctor about antibiotics, and given her prior allergies, she was given clindamycin and Azactam. PAST MEDICAL HISTORY: Notable for peripheral neuropathy, vertigo, hypertension, hyperlipidemia, COPD, GERD. She has a history of irritable bowel syndrome and has chronic diarrhea. She has anxiety, bipolar disorder, depression, and hypothyroidism. Left knee dislocation, a history of endometriosis. PAST SURGICAL HISTORY: She is status post partial laparoscopic hysterectomy in 2015, left lower extremity rods and screws, multiple orthopaedic procedures. SOCIAL HISTORY: She lives at the half-way. ALLERGIES: She is allergic to PENICILLIN, which gives her anaphylaxis. MEDICATIONS: At the half-way include Abilify, baclofen, Symbicort, vitamin D, Depakote, Synthroid, DuoNeb, allopurinol, vitamin D. She was on ceftriaxone, and tigecycline at the time of admission. Lasix, Motrin, Acidophilus, Latuda, metoprolol, hydrochlorothiazide, Pravachol, and zinc oxide ointment. FAMILY HISTORY: Notable for hypertension in her mother. REVIEW OF SYSTEMS: As per HPI. Currently, she has had no fevers or chills. PHYSICAL EXAMINATION: Vital Signs: Of note, she weighs 598 pounds. She reports she has been this weight for the last year. Temperature 98, pulse 76, blood pressure 132/72, respiratory rate 20. She is saturating 99% on room air. HEENT: She is normocephalic. Her eyes are anicteric. Neck: Supple. Her exam is completely limited by her body habitus. Heart: Distant heart sounds. Lungs: Diminished breath sounds at the bases. Extremities: Very difficult to turn her. Her right leg is completely skin is intact. The left foot is erythematous. She has some open lesions on the lower leg that are draining serous fluid. She has a clean, shallow ulcer open on her right upper thigh as well. She has verrucous, dry skin that is also very, very hyperkeratotic in her left upper thigh. DIAGNOSTIC DATA: Her labs are notable for a white count of 10.9, hemoglobin 11.2, platelets 316. Her chemistry are normal. Her LFTs are normal. In summary, this is a 43-year-old woman with: 1. Intermittent cellulitis of the left leg who has been on multiple antibiotics. Of note, her PMD at the half-way confirms that the wound has been positive for MRSA in the past. I would continue contact isolation, treat her with clindamycin for now. I doubt she is bacteremic as she is afebrile. Would follow up cultures. Would ask Wound Care to see her. 2. She is having diarrhea, which she states she has chronically, but given the history of antibiotic use, I would check a Clostridium difficile. She has as well a rash she reports developed prior to arriving to the hospital at the half-way that is scattered maculopapular lesions on her abdomen and upper thigh. She has some on the lateral aspects of her breasts. It is unclear whether this is a drug rash or fungal but would try Lotrimin cream for now. 3. Morbid obesity. Perhaps at some point she could be referred for bariatric surgery. 4. PENICILLIN allergy of anaphylaxis. She has tolerated ceftriaxone, which she was on at the time of transfer. Further recommendations to follow. VIOLETA RIOS M.D. PIPE/[id number] MTDTerri
[2018-07-31] MEDS: SENNOSIDES 8.6MG TABLET (FP) PO SCH (23:04)
[2018-07-31] MEDS: INSULIN (LEVEMIR) 100 UNITS/ML UNITS SQ SCH (23:04)
[2018-08-01] MEDS: CLINDAMYCIN 600MG PREMIX IVPB 600 MG/50 ML BAG IVPB SCH ×3 (01:29→17:55)
[2018-08-01] MEDS: BACLOFEN 10 MG TABLET (FP) PO SCH ×3 (05:56→21:52)
[2018-08-01] MEDS: HEPARIN NA (PORCINE) 5,000 UNITS/ML 1ML VIAL SQ SCH ×3 (05:58→21:52)
[2018-08-01] MEDS: FUROSEMIDE 40 MG/4 ML INJECTABLE VIAL IVPUSH SCH ×2 (05:59→15:00)
[2018-08-01] MEDS: INSULIN SLIDING SCALE (NOVOLOG) 1 VIAL SQ SCH ×5 (06:12→17:48)
[2018-08-01] MEDS: LEVOTHYROXINE NA 50 MCG TABLET (FP) PO SCH (06:23)
[2018-08-01] MEDS: oxyCODONE HCL 5 MG TABLET PO PRN ×3 (06:28→21:53)
[2018-08-01] MEDS: ALBUTEROL SO4 2.5/IPRATROPIUM 0.5 INH SOL 3 ML VIAL.NEB. NEB SCH ×4 (07:15→20:32)
[2018-08-01] MEDS: LURASIDONE HCL 20 MG TABLET PO SCH ×2 (07:18→17:55)
[2018-08-01] MEDS: AZTREONAM 2 GM in DEXTROSE 5%-WATER 100 ML IVPB SCH (07:18)
[2018-08-01] MEDS: diphenhydrAMINE HCL 25 MG CAPSULE (FP) PO PRN ×2 (07:37→17:54)
[2018-08-01 08:22] LABS: ALBUMIN 2.6 g/dl (3.4-5.0); ALK PHOS 88 U/L (45-117); ANION GAP 5 MMOL/L (8-16); BILIRUBIN,TOTAL 0.2 mg/dL (0.2-1); BLOOD UREA NITROGEN 8 mg/dL (7-18); CALCIUM 8.3 mg/dL (8.5-10.1); CHLORIDE 90 mmol/L (98-107); CO2 44 mmol/L (21-32); CREATININE 0.6 mg/dL (0.55-1.3); GLUCOSE,RANDOM 125 mg/dL (74-106); POTASSIUM 3.7 mmol/L (3.5-5.1); SGOT/AST 18 U/L (15-37); SGPT/ALT 23 U/L (13-61); SODIUM 139 mmol/L (136-145); TOT PROT 6.7 g/dl (6.4-8.2)
[2018-08-01 08:38] LABS: BASO % 0.9 % (0-2.0); EOS % 3.1 % (0-4.5); HEMATOCRIT 31.2 % (32.4-45.2); HEMOGLOBIN 10.2 GM/dL (10.7-15.3); LYMPH % 37.3 % (8-40); MCHC 32.8 g/dl (32.0-36.0); MEAN CELL VOLUME 88.3 fl (80-96); MEAN PLT VOLUME 7.7 fl (7.5-11.1); MONO % 8.2 % (3.8-10.2); NEUT % 50.5 % (42.8-82.8); PLATELET COUNT 294 K/MM3 (134-434); RBC 3.53 M/mm3 (3.60-5.2); RDW 17.2 % (11.6-15.6); WHITE BLOOD COUNT 7.8 K/mm3 (4.0-10.0)
[2018-08-01] MEDS ORDERED: PT OWN MED DRAWER 7, Y5N ONE ×3 (10:32→20:47)
[2018-08-01] MEDS: DOCUSATE SODIUM 100 MG CAPSULE (FP) PO SCH (10:34)
[2018-08-01] MEDS: METOPROLOL TARTRATE 25 MG TABLET (FP) PO SCH (10:36)
[2018-08-01] MEDS: ARIPiprazole 10 MG TABLET PO SCH (10:36)
[2018-08-01] MEDS: RANITIDINE HCL 150 MG TABLET (FP) PO SCH (10:36)
[2018-08-01] MEDS: HYDROCHLOROTHIAZIDE 12.5 MG CAPSULE (FP) PO SCH (10:36)
[2018-08-01] MEDS: DIVALPROEX SODIUM 250 MG TABLET E.C. PO SCH ×2 (10:36→21:52)
[2018-08-01] MEDS: BUDESONIDE/FORMETEROL FUMARATE 160/4.5 mcg INHALER IH SCH ×2 (10:38→22:10)
[2018-08-01] MEDS: CLOTRIMAZOLE 1% 10 ML TOPICAL SOLUTION TP SCH ×2 (10:38→22:09)
--- NOTE | 2018-08-01 11:18 | PN ---
Progress Note (short form) - Note Progress Note: chronic diarrhea has IBS pain is better controlled explained to pt that she has DM Vital Signs - 24 hr 07/31/18 07/31/18 08/01/18 16:36 22:53 06:00 Temperature 98.3 F 98.6 F Pulse Rate 80 81 Respiratory 20 20 Rate Blood Pressure 130/66 134/69 O2 Sat by Pulse 99 Oximetry (%) 08/01/18 10:00 Temperature 98.1 F Pulse Rate 78 Respiratory 20 Rate Blood Pressure 144/82 O2 Sat by Pulse Oximetry (%) Current Medications Generic Name Dose Route Start Last Admin Trade Name Freq PRN Reason Stop Dose Admin Acetaminophen 650 mg 07/30/18 18:53 07/31/18 17:31 Tylenol - PO 650 mg Q6H PRN Administration PAIN LEVEL 6-10 Albuterol/Ipratropium 1 amp 07/30/18 20:00 08/01/18 11:31 Duoneb - NEB Not Given RQID [facility] Allopurinol 300 mg 07/31/18 16:30 07/31/18 16:09 Zyloprim - PO 300 mg DAILY@1630 [facility] Administration Aripiprazole 10 mg 07/31/18 10:00 08/01/18 10:36 Abilify PO 10 mg DAILY [facility] Administration Ascorbic Acid 250 mg 08/05/18 10:00 Vitamin C - PO We@1000 [facility] Atorvastatin Calcium 10 mg 07/30/18 22:00 07/31/18 21:30 Lipitor - PO 10 mg HS [facility] Administration Baclofen 10 mg 07/30/18 22:00 08/01/18 05:56 Lioresal - PO 10 mg TID [facility] Administration Budesonide/Formoterol Fumarate 1 puff 07/30/18 22:00 08/01/18 10:38 Symbicort 160/4.5mcg - IH 1 puff BID [facility] Administration Clotrimazole 1 applic 07/30/18 22:00 08/01/18 10:38 Clotrimazole TP 1 applic BID [facility] Administration Diphenhydramine HCl 25 mg 07/30/18 18:53 08/01/18 07:37 Benadryl - PO 25 mg Q6H PRN Administration FOR ITCHING Divalproex Sodium 250 mg 07/30/18 22:00 08/01/18 10:36 Depakote - PO 250 mg BID [facility] Administration Docusate Sodium 100 mg 07/30/18 22:00 08/01/18 10:34 Colace - PO Not Given BID [facility] Ergocalciferol 50,000 unit 08/05/18 10:00 Drisdol - PO We@1000 [facility] Fentanyl 1 patch 08/01/18 18:45 Duragesic 25mcg Patch - TD 08/05/18 18:37 Q72H [facility] Furosemide 40 mg 07/31/18 06:00 08/01/18 05:59 Lasix Injection - IVPUSH 40 mg BID@0600,1400 [facility] Administration Heparin Sodium (Porcine) 5,000 unit 07/30/18 22:00 08/01/18 05:58 Heparin - SQ 5,000 unit TID [facility] Administration Hydrochlorothiazide 12.5 mg 07/31/18 10:00 08/01/18 10:36 Hctz - PO 12.5 mg DAILY [facility] Administration Clindamycin Phosphate 600 mg in 50 mls @ 100 mls/hr 07/31/18 02:00 08/01/18 10:36 Cleocin 600 Mg Premix Ivpb - IVPB 100 mls/hr Q8H-IV [facility] Administration Protocol Ibuprofen 200 mg 07/30/18 18:53 Advil - PO Q12H PRN PAIN LEVEL 4-6 Insulin Aspart 1 vial 07/31/18 07:00 08/01/18 10:46 Novolog Vial Sliding Scale - SQ Not Given TIDAC [facility] Protocol Insulin Detemir 5 units 07/31/18 22:00 07/31/18 23:04 Levemir Vial SQ Not Given HS [facility] Lactobacillus Acidophilus 1 tab 07/31/18 16:30 07/31/18 16:09 Bacid - PO 1 tab DAILY@1630 [facility] Administration Levothyroxine Sodium 50 mcg 07/31/18 07:00 08/01/18 06:23 Synthroid - PO 50 mcg DAILY@0700 [facility] Administration Lurasidone HCl 60 mg 07/31/18 18:00 07/31/18 17:29 Latuda - PO 60 mg DAILY@1800 [facility] Administration Metoprolol Tartrate 25 mg 07/31/18 10:00 08/01/18 10:36 Lopressor - PO 25 mg DAILY [facility] Administration Miscellaneous 1 each 07/30/18 18:53 Duragesic Patch Waste TD PRN PRN PAIN Oxycodone HCl 10 mg 07/30/18 18:53 08/01/18 06:28 Roxicodone - PO 10 mg Q6H PRN Administration PAIN LEVEL 7-10 Ranitidine HCl 150 mg 07/31/18 10:00 08/01/18 10:36 Zantac - PO 150 mg DAILY [facility] Administration Senna 2 tab 07/30/18 22:00 07/31/18 23:04 Senna - PO Not Given HS [facility] Laboratory Results - last 24 hr 08/01/18 08/01/18 06:00 06:00 WBC 7.8 RBC 3.53 L Hgb 10.2 L Hct 31.2 L MCV 88.3 MCH 29.0 MCHC 32.8 RDW 17.2 H Plt Count 294 MPV 7.7 Absolute Neuts (auto) 3.9 Neutrophils % 50.5 Lymphocytes % 37.3 Monocytes % 8.2 Eosinophils % 3.1 Basophils % 0.9 Nucleated RBC % 0 Sodium 139 Potassium 3.7 Chloride 90 L Carbon Dioxide 44 H Anion Gap 5 L BUN 8 Creatinine 0.6 Creat Clearance w eGFR > 60 Random Glucose 125 H Calcium 8.3 L Total Bilirubin 0.2 AST 18 ALT 23 Alkaline Phosphatase 88 Total Protein 6.7 Albumin 2.6 L TSH 8.36 H S1 S2 RRR Lungs decreased Patient is morbidly obese Abdomen is soft, obese nontender Lymphedema bilaterally, dressing noted on the left leg Plan IV antibiotics per infectious disease Surgery rebound noted, no debridement or any other interventions, dressing changes noted Added oxycodone for pain relief Continue medications Immodium prn Check BGM On Metformin DVT prophylaxis Patient has chronic diarrhea, suffers from irritable bowel syndrome Problem List - Problems (1) Diabetes type 2, uncontrolled Code(s): E11.65 - TYPE 2 DIABETES MELLITUS WITH HYPERGLYCEMIA (2) Bipolar 2 disorder, major depressive episode Code(s): F31.81 - BIPOLAR II DISORDER (3) Hyperlipidemia Code(s): E78.5 - HYPERLIPIDEMIA, UNSPECIFIED (4) Hypothyroid Code(s): E03.9 - HYPOTHYROIDISM, UNSPECIFIED (5) Leg wound, left Code(s): S81.802A - UNSPECIFIED OPEN WOUND, LEFT LOWER LEG, INITIAL ENCOUNTER (6) Non-healing wound Code(s): QUY1637 - (7) Cellulitis Code(s): L03.90 - CELLULITIS, UNSPECIFIED Qualifiers: Site of cellulitis: trunk Site of cellulitis of trunk: abdominal wall Qualified Code(s): L03.311 - Cellulitis of abdominal wall (8) HTN (hypertension) Code(s): I10 - ESSENTIAL (PRIMARY) HYPERTENSION (9) Obesities, morbid Code(s): E66.01 - MORBID (SEVERE) OBESITY DUE TO EXCESS CALORIES
[2018-08-01] MEDS ORDERED: DOCUSATE SODIUM 100 MG CAPSULE (FP) PO PRN (11:37)
[2018-08-01] MEDS ORDERED: SENNOSIDES 8.6MG TABLET (FP) PO PRN (11:37)
[2018-08-01] MEDS: LACTOBACILLUS ACIDOPHILUS 1 TABLET PO SCH ×2 (14:21→21:52)
[2018-08-01] MEDS: TOLNAFTATE 1% POWDER 45 GM POW TP SCH ×2 (14:22→22:10)
[2018-08-01] MEDS: MINERAL OIL/PET HY-PHL TOPICAL OINTMENT 454 GM JAR TP SCH ×2 (14:22→22:10)
[2018-08-01] MEDS: fentaNYL 25mcg/hr PATCH.TD72 TD SCH (17:54)
[2018-08-01] MEDS: ALLOPURINOL 300 MG TABLET (FP) PO SCH (17:55)
[2018-08-01] MEDS: FENTANYL PATCH WASTE TD PRN (18:02)
[2018-08-01] MEDS: LOPERAMIDE HCL 2 MG CAPSULE PO PRN (18:06)
[2018-08-01] MEDS: ACETAMINOPHEN 325 MG TABLET (FP) PO PRN (18:06)
[2018-08-01] MEDS: ATORVASTATIN CA 10 MG TABLET (FP) PO SCH (21:52)
[2018-08-01] MEDS: INSULIN (LEVEMIR) 100 UNITS/ML UNITS SQ SCH (22:09)
[2018-08-02] MEDS: CLINDAMYCIN 600MG PREMIX IVPB 600 MG/50 ML BAG IVPB SCH ×3 (03:13→18:06)
[2018-08-02] MEDS ORDERED: INSULIN (NOVOLOG) ASPART 100 UNITS/ML 10ML VIAL ONE (05:26)
[2018-08-02] MEDS: LACTOBACILLUS ACIDOPHILUS 1 TABLET PO SCH ×3 (05:49→22:28)
[2018-08-02] MEDS: oxyCODONE HCL 5 MG TABLET PO PRN ×3 (05:49→18:13)
[2018-08-02] MEDS: BACLOFEN 10 MG TABLET (FP) PO SCH ×3 (05:49→22:23)
[2018-08-02] MEDS: FUROSEMIDE 40 MG/4 ML INJECTABLE VIAL IVPUSH SCH ×2 (05:49→15:08)
[2018-08-02] MEDS: HEPARIN NA (PORCINE) 5,000 UNITS/ML 1ML VIAL SQ SCH ×3 (05:52→22:23)
[2018-08-02] MEDS: LEVOTHYROXINE NA 50 MCG TABLET (FP) PO SCH (06:00)
[2018-08-02] MEDS: INSULIN SLIDING SCALE (NOVOLOG) 1 VIAL SQ SCH ×3 (06:00→18:08)
[2018-08-02] MEDS: ALBUTEROL SO4 2.5/IPRATROPIUM 0.5 INH SOL 3 ML VIAL.NEB. NEB SCH ×4 (07:15→20:00)
--- NOTE | 2018-08-02 09:00 | PN ---
Progress Note (short form) - Note Progress Note: chronic diarrhea has IBS pain is better controlled explained to pt that she has DM Vital Signs - 24 hr 08/01/18 08/02/18 08/02/18 22:00 09:00 15:00 Temperature 97.8 F 98 F Pulse Rate 78 76 Respiratory 20 19 19 Rate Blood Pressure 126/68 132/78 O2 Sat by Pulse 96 Oximetry (%) Current Medications Generic Name Dose Route Start Last Admin Trade Name Freq PRN Reason Stop Dose Admin Acetaminophen 650 mg 07/30/18 18:53 08/01/18 18:06 Tylenol - PO 650 mg Q6H PRN Administration PAIN LEVEL 6-10 Albuterol/Ipratropium 1 amp 07/30/18 20:00 08/02/18 20:00 Duoneb - NEB Not Given RQID [facility] Allopurinol 300 mg 07/31/18 16:30 08/02/18 18:07 Zyloprim - PO 300 mg DAILY@1630 [facility] Administration Aripiprazole 10 mg 07/31/18 10:00 08/02/18 10:34 Abilify PO 10 mg DAILY [facility] Administration Ascorbic Acid 250 mg 08/05/18 10:00 Vitamin C - PO We@1000 [facility] Atorvastatin Calcium 10 mg 07/30/18 22:00 08/01/18 21:52 Lipitor - PO 10 mg HS [facility] Administration Baclofen 10 mg 07/30/18 22:00 08/02/18 14:30 Lioresal - PO 10 mg TID [facility] Administration Budesonide/Formoterol Fumarate 1 puff 07/30/18 22:00 08/02/18 10:38 Symbicort 160/4.5mcg - IH 1 puff BID [facility] Administration Clotrimazole 1 applic 07/30/18 22:00 08/02/18 10:38 Clotrimazole TP 1 applic BID [facility] Administration Collagenase 1 applic 08/02/18 10:00 08/02/18 15:08 Santyl - TP 1 applic DAILY [facility] Administration Protocol Diphenhydramine HCl 25 mg 07/30/18 18:53 08/02/18 18:09 Benadryl - PO 25 mg Q6H PRN Administration FOR ITCHING Divalproex Sodium 250 mg 07/30/18 22:00 08/02/18 10:40 Depakote - PO 250 mg BID [facility] Administration Docusate Sodium 100 mg 08/01/18 11:37 Colace - PO BID PRN CONSTIPATION Emollient Ointment 1 applic 08/01/18 11:45 08/02/18 10:38 Aquaphor - TP 1 applic BID [facility] Administration Ergocalciferol 50,000 unit 08/05/18 10:00 Drisdol - PO We@1000 [facility] Fentanyl 1 patch 08/01/18 18:45 08/01/18 17:54 Duragesic 25mcg Patch - TD 08/05/18 18:37 1 patch Q72H [facility] Administration Furosemide 40 mg 07/31/18 06:00 08/02/18 15:08 Lasix Injection - IVPUSH 40 mg BID@0600,1400 [facility] Administration Heparin Sodium (Porcine) 5,000 unit 07/30/18 22:00 08/02/18 14:30 Heparin - SQ 5,000 unit TID [facility] Administration Hydrochlorothiazide 12.5 mg 07/31/18 10:00 08/02/18 10:34 Hctz - PO 12.5 mg DAILY [facility] Administration Clindamycin Phosphate 600 mg in 50 mls @ 100 mls/hr 07/31/18 02:00 08/02/18 18:06 Cleocin 600 Mg Premix Ivpb - IVPB 100 mls/hr Q8H-IV [facility] Administration Protocol Ibuprofen 200 mg 07/30/18 18:53 Advil - PO Q12H PRN PAIN LEVEL 4-6 Insulin Aspart 1 vial 07/31/18 07:00 08/02/18 18:08 Novolog Vial Sliding Scale - SQ Not Given TIDAC [facility] Protocol Insulin Detemir 5 units 07/31/18 22:00 08/01/18 22:09 Levemir Vial SQ 5 units HS [facility] Administration Lactobacillus Acidophilus 1 tab 08/01/18 14:00 08/02/18 14:30 Bacid - PO 1 tab TID [facility] Administration Levothyroxine Sodium 50 mcg 07/31/18 07:00 08/02/18 06:00 Synthroid - PO 50 mcg DAILY@0700 [facility] Administration Loperamide HCl 4 mg 08/01/18 11:35 08/01/18 18:06 Imodium - PO 4 mg Q6H PRN Administration DIARRHEA Lurasidone HCl 60 mg 07/31/18 18:00 08/02/18 18:07 Latuda - PO 60 mg DAILY@1800 [facility] Administration Metoprolol Tartrate 25 mg 07/31/18 10:00 08/02/18 10:33 Lopressor - PO 25 mg DAILY [facility] Administration Miscellaneous 1 each 07/30/18 18:53 08/01/18 18:02 Duragesic Patch Waste TD 1 each PRN PRN Administration PAIN Oxycodone HCl 10 mg 08/02/18 19:41 Roxicodone - PO Q6H PRN PAIN LEVEL 7-10 Ranitidine HCl 150 mg 07/31/18 10:00 08/02/18 10:33 Zantac - PO 150 mg DAILY [facility] Administration Senna 2 tab 08/01/18 11:37 Senna - PO HS PRN CONSTIPATION Tolnaftate 1 applic 08/01/18 11:45 08/02/18 10:38 Tinactin 1% Powder - TP 1 applic BID [facility] Administration Laboratory Results - last 24 hr 08/01/18 08/02/18 08/02/18 22:03 05:56 11:51 POC Glucometer 148 130 179 08/02/18 18:06 POC Glucometer 128 S1 S2 RRR Lungs decreased Patient is morbidly obese Abdomen is soft, obese nontender Lymphedema bilaterally, dressing noted on the left leg Plan IV antibiotics per infectious disease Surgery noted, no debridement or any other interventions, dressing changes noted Added oxycodone for pain relief vascular eval Continue medications Immodium prn Check BGM On Metformin DVT prophylaxis Patient has chronic diarrhea, suffers from irritable bowel syndrome Problem List - Problems (1) Diabetes type 2, uncontrolled Code(s): E11.65 - TYPE 2 DIABETES MELLITUS WITH HYPERGLYCEMIA (2) Bipolar 2 disorder, major depressive episode Code(s): F31.81 - BIPOLAR II DISORDER (3) Hyperlipidemia Code(s): E78.5 - HYPERLIPIDEMIA, UNSPECIFIED (4) Hypothyroid Code(s): E03.9 - HYPOTHYROIDISM, UNSPECIFIED (5) Leg wound, left Code(s): S81.802A - UNSPECIFIED OPEN WOUND, LEFT LOWER LEG, INITIAL ENCOUNTER (6) Non-healing wound Code(s): [id number] - (7) Cellulitis Code(s): L03.90 - CELLULITIS, UNSPECIFIED Qualifiers: Site of cellulitis: trunk Site of cellulitis of trunk: abdominal wall Qualified Code(s): L03.311 - Cellulitis of abdominal wall (8) HTN (hypertension) Code(s): I10 - ESSENTIAL (PRIMARY) HYPERTENSION (9) Obesities, morbid Code(s): E66.01 - MORBID (SEVERE) OBESITY DUE TO EXCESS CALORIES
[2018-08-02] MEDS ORDERED: PT OWN MED DRAWER 7, Y5N ONE ×4 (10:25→22:17)
[2018-08-02] MEDS: METOPROLOL TARTRATE 25 MG TABLET (FP) PO SCH (10:33)
[2018-08-02] MEDS: RANITIDINE HCL 150 MG TABLET (FP) PO SCH (10:33)
[2018-08-02] MEDS: diphenhydrAMINE HCL 25 MG CAPSULE (FP) PO PRN ×2 (10:34→18:09)
[2018-08-02] MEDS: ARIPiprazole 10 MG TABLET PO SCH (10:34)
[2018-08-02] MEDS: HYDROCHLOROTHIAZIDE 12.5 MG CAPSULE (FP) PO SCH (10:34)
[2018-08-02] MEDS: TOLNAFTATE 1% POWDER 45 GM POW TP SCH ×2 (10:38→22:28)
[2018-08-02] MEDS: BUDESONIDE/FORMETEROL FUMARATE 160/4.5 mcg INHALER IH SCH ×2 (10:38→22:28)
[2018-08-02] MEDS: MINERAL OIL/PET HY-PHL TOPICAL OINTMENT 454 GM JAR TP SCH ×2 (10:38→22:28)
[2018-08-02] MEDS: CLOTRIMAZOLE 1% 10 ML TOPICAL SOLUTION TP SCH ×2 (10:38→22:27)
[2018-08-02] MEDS: DIVALPROEX SODIUM 250 MG TABLET E.C. PO SCH ×2 (10:40→22:23)
[2018-08-02] MEDS: COLLAGENASE CLOSTRIDIUM HIST. 30 GRAMS TUBE TP SCH (15:08)
[2018-08-02] MEDS: ALLOPURINOL 300 MG TABLET (FP) PO SCH (18:07)
[2018-08-02] MEDS: LURASIDONE HCL 20 MG TABLET PO SCH (18:07)
[2018-08-02] MEDS: ATORVASTATIN CA 10 MG TABLET (FP) PO SCH (22:23)
[2018-08-02] MEDS: ACETAMINOPHEN 325 MG TABLET (FP) PO PRN (22:23)
[2018-08-02] MEDS: INSULIN (LEVEMIR) 100 UNITS/ML UNITS SQ SCH (22:27)
[2018-08-02] MEDS: LOPERAMIDE HCL 2 MG CAPSULE PO PRN (22:38)
[2018-08-03] MEDS: oxyCODONE HCL 5 MG TABLET PO PRN ×4 (02:03→21:27)
[2018-08-03] MEDS: CLINDAMYCIN 600MG PREMIX IVPB 600 MG/50 ML BAG IVPB SCH ×2 (02:03→10:24)
[2018-08-03] MEDS: FUROSEMIDE 40 MG/4 ML INJECTABLE VIAL IVPUSH SCH ×2 (06:08→13:16)
[2018-08-03] MEDS: BACLOFEN 10 MG TABLET (FP) PO SCH ×3 (06:08→21:27)
[2018-08-03] MEDS: LEVOTHYROXINE NA 50 MCG TABLET (FP) PO SCH (06:08)
[2018-08-03] MEDS: LACTOBACILLUS ACIDOPHILUS 1 TABLET PO SCH ×3 (06:08→21:26)
[2018-08-03] MEDS: HEPARIN NA (PORCINE) 5,000 UNITS/ML 1ML VIAL SQ SCH ×3 (06:08→21:55)
[2018-08-03] MEDS: INSULIN SLIDING SCALE (NOVOLOG) 1 VIAL SQ SCH ×3 (06:27→17:57)
[2018-08-03] MEDS: ALBUTEROL SO4 2.5/IPRATROPIUM 0.5 INH SOL 3 ML VIAL.NEB. NEB SCH ×4 (07:40→20:54)
[2018-08-03] MEDS ORDERED: PT OWN MED DRAWER 7, Y5N ONE ×2 (10:16→13:19)
[2018-08-03] MEDS: HYDROCHLOROTHIAZIDE 12.5 MG CAPSULE (FP) PO SCH (10:23)
[2018-08-03] MEDS: RANITIDINE HCL 150 MG TABLET (FP) PO SCH (10:23)
[2018-08-03] MEDS: METOPROLOL TARTRATE 25 MG TABLET (FP) PO SCH (10:23)
[2018-08-03] MEDS: ARIPiprazole 10 MG TABLET PO SCH (10:24)
[2018-08-03] MEDS: CLOTRIMAZOLE 1% 10 ML TOPICAL SOLUTION TP SCH ×2 (10:25→21:55)
[2018-08-03] MEDS: BUDESONIDE/FORMETEROL FUMARATE 160/4.5 mcg INHALER IH SCH ×2 (10:25→21:55)
[2018-08-03] MEDS: DIVALPROEX SODIUM 250 MG TABLET E.C. PO SCH ×2 (10:25→21:26)
[2018-08-03] MEDS: MINERAL OIL/PET HY-PHL TOPICAL OINTMENT 454 GM JAR TP SCH ×2 (10:26→21:54)
[2018-08-03] MEDS: COLLAGENASE CLOSTRIDIUM HIST. 30 GRAMS TUBE TP SCH (10:26)
[2018-08-03] MEDS: TOLNAFTATE 1% POWDER 45 GM POW TP SCH ×2 (10:27→21:56)
--- NOTE | 2018-08-03 10:30 | PN ---
Progress Note (short form) - Note Progress Note: pt seen/ examined chart reviewed c/c pain issues -- wants meds to be increased Vital Signs Temp 97.5 F L 08/03/18 06:00 Pulse 90 08/03/18 06:00 Resp 20 08/03/18 06:00 BP 124/77 08/03/18 06:00 Pulse Ox 96 08/02/18 09:00 Intake & Output 08/02/18 08/02/18 08/03/18 11:59 23:59 11:59 Intake Total Output Total 1400 400 Balance -1400 -400 Weight 576 lb 1.6 oz Intake: IVPB Oral Output: Urine 1400 400 Butler 1400 400 Other: Voiding Method Indwelling Catheter Bowel Movement No Weight Measurement Method Built in [facility] Active Medications Acetaminophen (Tylenol -) 650 mg PO Q6H PRN PRN Reason: PAIN LEVEL 6-10 Last Admin: 08/02/18 22:23 Dose: 650 mg Albuterol/Ipratropium (Duoneb -) 1 amp NEB RQID [facility] Last Admin: 08/03/18 07:40 Dose: Not Given Allopurinol (Zyloprim -) 300 mg PO DAILY@1630 [facility] Last Admin: 08/02/18 18:07 Dose: 300 mg Aripiprazole (Abilify) 10 mg PO DAILY [facility] Last Admin: 08/03/18 10:24 Dose: 10 mg Ascorbic Acid (Vitamin C -) 250 mg PO We@1000 [facility] Atorvastatin Calcium (Lipitor -) 10 mg PO HS [facility] Last Admin: 08/02/18 22:23 Dose: 10 mg Baclofen (Lioresal -) 10 mg PO TID [facility] Last Admin: 08/03/18 06:08 Dose: 10 mg Budesonide/Formoterol Fumarate (Symbicort 160/4.5mcg -) 1 puff IH BID [facility] Last Admin: 08/03/18 10:25 Dose: 1 puff Clotrimazole (Clotrimazole) 1 applic TP BID [facility] Last Admin: 08/03/18 10:25 Dose: 1 applic Collagenase (Santyl -) 1 applic TP DAILY [facility]; Protocol Last Admin: 08/03/18 10:26 Dose: 1 applic Diphenhydramine HCl (Benadryl -) 25 mg PO Q6H PRN PRN Reason: FOR ITCHING Last Admin: 08/02/18 18:09 Dose: 25 mg Divalproex Sodium (Depakote -) 250 mg PO BID [facility] Last Admin: 08/03/18 10:25 Dose: 250 mg Docusate Sodium (Colace -) 100 mg PO BID PRN PRN Reason: CONSTIPATION Last Admin: 08/03/18 06:09 Dose: 100 mg Emollient Ointment (Aquaphor -) 1 applic TP BID [facility] Last Admin: 08/03/18 10:26 Dose: 1 applic Ergocalciferol (Drisdol -) 50,000 unit PO We@1000 [facility] Fentanyl (Duragesic 25mcg Patch -) 1 patch TD Q72H [facility] Stop: 08/05/18 18:37 Last Admin: 08/01/18 17:54 Dose: 1 patch Furosemide (Lasix Injection -) 40 mg IVPUSH BID@0600,1400 [facility] Last Admin: 08/03/18 06:08 Dose: 40 mg Heparin Sodium (Porcine) (Heparin -) 5,000 unit SQ TID [facility] Last Admin: 08/03/18 06:08 Dose: 5,000 unit Hydrochlorothiazide (Hctz -) 12.5 mg PO DAILY [facility] Last Admin: 08/03/18 10:23 Dose: 12.5 mg Clindamycin Phosphate (Cleocin 600 Mg Premix Ivpb -) 600 mg in 50 mls @ 100 mls /hr IVPB Q8H-IV [facility]; Protocol Last Admin: 08/03/18 10:24 Dose: 100 mls/hr Ibuprofen (Advil -) 200 mg PO Q12H PRN PRN Reason: PAIN LEVEL 4-6 Insulin Aspart (Novolog Vial Sliding Scale -) 1 vial SQ TIDAC [facility]; Protocol Last Admin: 08/03/18 06:27 Dose: Not Given Insulin Detemir (Levemir Vial) 5 units SQ HS [facility] Last Admin: 08/02/18 22:27 Dose: 5 units Lactobacillus Acidophilus (Bacid -) 1 tab PO TID [facility] Last Admin: 08/03/18 06:08 Dose: 1 tab Levothyroxine Sodium (Synthroid -) 50 mcg PO DAILY@0700 [facility] Last Admin: 08/03/18 06:08 Dose: 50 mcg Loperamide HCl (Imodium -) 4 mg PO Q6H PRN PRN Reason: DIARRHEA Last Admin: 08/02/18 22:38 Dose: 4 mg Lurasidone HCl (Latuda -) 60 mg PO DAILY@1800 [facility] Last Admin: 08/02/18 18:07 Dose: 60 mg Metoprolol Tartrate (Lopressor -) 25 mg PO DAILY [facility] Last Admin: 08/03/18 10:23 Dose: 25 mg Miscellaneous (Duragesic Patch Waste) 1 each TD PRN PRN PRN Reason: PAIN Last Admin: 08/01/18 18:02 Dose: 1 each Oxycodone HCl (Roxicodone -) 10 mg PO Q6H PRN PRN Reason: PAIN LEVEL 7-10 Last Admin: 08/03/18 10:23 Dose: 10 mg Ranitidine HCl (Zantac -) 150 mg PO DAILY [facility] Last Admin: 08/03/18 10:23 Dose: 150 mg Senna (Senna -) 2 tab PO HS PRN PRN Reason: CONSTIPATION Tolnaftate (Tinactin 1% Powder -) 1 applic TP BID [facility] Last Admin: 08/03/18 10:27 Dose: 1 applic CBC, BMP 08/01/18 06:00 08/01/18 06:00 c diff -- Pending Physical exam awake S1 S2 RRR Lungs decreased Patient is morbidly obese Abdomen is soft, obese nontender Lymphedema bilaterally, dressing noted on the left leg Plan IV antibiotics per infectious disease Surgery noted, no debridement or any other interventions, dressing changes noted oxycodone for pain relief-- q 4hrs vascular eval Continue medications Immodium prn Check BGM On Metformin DVT prophylaxis will follow
--- NOTE | 2018-08-03 11:34 | PN ---
Progress Note (short form) - Note Progress Note: continues with left upper leg pain Vital Signs Period Temp Pulse Resp BP Sys/Marr Pulse Ox Last 24 Hr 97.5 F-98.2 F 76-90 19-20 112-132/64-78 cor-rrr lungs clear abd soft,nt ext minimal erythema of the left foot, thigh wound is clean CBC, BMP 08/01/18 06:00 08/01/18 06:00 Microbiology 07/28/18 18:16 Blood - Peripheral Venous Blood Culture - Final NO GROWTH AFTER 5 DAYS INCUBATION 07/28/18 18:16 Blood - Peripheral Venous Blood Culture - Final NO GROWTH AFTER 5 DAYS INCUBATION 07/30/18 21:00 Stool Clostridioides difficile Antigen - Final 07/30/18 21:00 Stool Clostridioides difficile Toxin Assay - Final 07/30/18 12:50 Cellulitis MRSA Screen - Final S Aureus 07/28/18 21:25 Urine - Urine Butler Urine Culture - Final NO GROWTH OBTAINED a/p recurrent cellulitis- much improved suggest switch to po doxycycline 100 bid would treat for 6 weeks chronic leg wound-spoke with wound care department they are suggesting santyl for the open thigh wound and silvadene for the lower leg morbid obesity please call back if needed Problem List - Problems (1) Cellulitis Code(s): L03.90 - CELLULITIS, UNSPECIFIED Qualifiers: Site of cellulitis: trunk Site of cellulitis of trunk: abdominal wall Qualified Code(s): L03.311 - Cellulitis of abdominal wall (2) Non-healing wound Code(s): [id number] - (3) Obesities, morbid Code(s): E66.01 - MORBID (SEVERE) OBESITY DUE TO EXCESS CALORIES (4) Penicillin allergy Code(s): Z88.0 - ALLERGY STATUS TO PENICILLIN
[2018-08-03] MEDS: ACETAMINOPHEN 325 MG TABLET (FP) PO PRN (13:22)
[2018-08-03] MEDS: DOXYCYCLINE HYCLATE 100 MG CAPSULE PO SCH (17:57)
[2018-08-03] MEDS: ALLOPURINOL 300 MG TABLET (FP) PO SCH (17:57)
[2018-08-03] MEDS: LURASIDONE HCL 20 MG TABLET PO SCH (17:58)
[2018-08-03] MEDS: ATORVASTATIN CA 10 MG TABLET (FP) PO SCH (21:26)
[2018-08-03] MEDS: INSULIN (LEVEMIR) 100 UNITS/ML UNITS SQ SCH (21:31)
[2018-08-03] MEDS: LOPERAMIDE HCL 2 MG CAPSULE PO PRN (21:54)
[2018-08-04] MEDS: oxyCODONE HCL 5 MG TABLET PO PRN ×4 (03:03→19:08)
[2018-08-04] MEDS: LACTOBACILLUS ACIDOPHILUS 1 TABLET PO SCH ×2 (05:51→15:21)
[2018-08-04] MEDS: BACLOFEN 10 MG TABLET (FP) PO SCH ×2 (05:51→15:21)
[2018-08-04] MEDS: FUROSEMIDE 40 MG/4 ML INJECTABLE VIAL IVPUSH SCH ×2 (05:52→15:21)
[2018-08-04] MEDS: HEPARIN NA (PORCINE) 5,000 UNITS/ML 1ML VIAL SQ SCH ×2 (05:58→15:20)
[2018-08-04] MEDS: LEVOTHYROXINE NA 50 MCG TABLET (FP) PO SCH (06:07)
[2018-08-04] MEDS: INSULIN SLIDING SCALE (NOVOLOG) 1 VIAL SQ SCH ×3 (06:07→17:42)
[2018-08-04] MEDS: ALBUTEROL SO4 2.5/IPRATROPIUM 0.5 INH SOL 3 ML VIAL.NEB. NEB SCH ×4 (07:40→19:35)
[2018-08-04] MEDS: RANITIDINE HCL 150 MG TABLET (FP) PO SCH (10:30)
[2018-08-04] MEDS: METOPROLOL TARTRATE 25 MG TABLET (FP) PO SCH (10:30)
[2018-08-04] MEDS: DIVALPROEX SODIUM 250 MG TABLET E.C. PO SCH (10:30)
[2018-08-04] MEDS: DOXYCYCLINE HYCLATE 100 MG CAPSULE PO SCH ×2 (10:30→17:42)
[2018-08-04] MEDS: HYDROCHLOROTHIAZIDE 12.5 MG CAPSULE (FP) PO SCH (10:30)
[2018-08-04] MEDS: BUDESONIDE/FORMETEROL FUMARATE 160/4.5 mcg INHALER IH SCH (10:31)
[2018-08-04] MEDS: ARIPiprazole 10 MG TABLET PO SCH (10:31)
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
[2018-08-04] MEDS: COLLAGENASE CLOSTRIDIUM HIST. 30 GRAMS TUBE TP SCH (15:21)
[2018-08-04] MEDS: MINERAL OIL/PET HY-PHL TOPICAL OINTMENT 454 GM JAR TP SCH (15:21)
[2018-08-04] MEDS: CLOTRIMAZOLE 1% 10 ML TOPICAL SOLUTION TP SCH (15:21)
[2018-08-04] MEDS: TOLNAFTATE 1% POWDER 45 GM POW TP SCH (15:22)
[2018-08-04 17:14] VITALS: BP 129/66; PULSE 81; TEMP 97.9
[2018-08-04] MEDS: fentaNYL 25mcg/hr PATCH.TD72 TD SCH ×2 (17:43→19:09)
[2018-08-04] MEDS: ALLOPURINOL 300 MG TABLET (FP) PO SCH (17:44)
[2018-08-04] MEDS: LOPERAMIDE HCL 2 MG CAPSULE PO PRN (17:44)
[2018-08-04] MEDS: LURASIDONE HCL 20 MG TABLET PO SCH (17:45)
[2018-08-04] MEDS: FENTANYL PATCH WASTE TD PRN (19:07)
[2018-08-05] MEDS ORDERED: ASCORBIC ACID 250 MG TABLET (FP) PO SCH (10:00)
[2018-08-05] MEDS ORDERED: ERGOCALCIFEROL (VITAMIN D2) 50,000 UNIT CAPSULE (FP) PO SCH (10:00)
== END 2018-08-04 20:30 | DRG 384 ==
LOC: JER 14:53 → JERBED 20:37 → J4W 07-29 14:23 → J8W 07-30 17:10
PROVIDERS: ADMIT Internal Medicine; ATTEND Internal Medicine
DX: S81.802A Unspecified open wound, left lower leg, initial encounter (principal); X58.XXXA Exposure to other specified factors, initial encounter; Y93.9 Activity, unspecified; Y92.89 Other specified places as the place of occurrence of the external cause; Y99.9 Unspecified external cause status; E66.01 Morbid (severe) obesity due to excess calories; Z68.44 Body mass index [BMI] 60.0-69.9, adult; Z88.0 Allergy status to penicillin; F31.81 Bipolar II disorder; E11.65 Type 2 diabetes mellitus with hyperglycemia; E78.5 Hyperlipidemia, unspecified; E03.9 Hypothyroidism, unspecified; R19.7 Diarrhea, unspecified; I89.0 Lymphedema, not elsewhere classified; I10 Essential (primary) hypertension; F32.9 Major depressive disorder, single episode, unspecified; G89.29 Other chronic pain; J44.9 Chronic obstructive pulmonary disease, unspecified; K21.9 Gastro-esophageal reflux disease without esophagitis; R42 Dizziness and giddiness; J45.909 Unspecified asthma, uncomplicated; L03.116 Cellulitis of left lower limb; D72.829 Elevated white blood cell count, unspecified
CPT/HCPCS: 36415; 80048; 80053; 80061; 81003; 81015; 82550; 82962; 83036; 83605; 83721; 83735; 83880; 84100; 84439; 84443; 84484; 85025; 85610; 85730; 87040; 87081; 87086; 87324; 87449; 93005; 93010; 93306-TC; 94640; 99285-25; J0475; J1644

== ENCOUNTER 2018-10-09 18:58 | Inpatient (IN) | payer OTHER ==
--- NOTE | 2018-10-09 20:21 | PDOC ---
History of Present Illness - General Chief Complaint: Wound Stated Complaint: CELLULITIS Time Seen by Provider: 10/09/18 20:19 - History of Present Illness Initial Comments: 10/09/18 20:19 Ms. Cedeno is a 43 yo female w/ pmh of HTN, hypothyroidism, COPD, depression, bipolar disorder, and super morbid obesity who presents for evaluation of 1 day history of LLE redness and pain. Patient reports her symptoms started with LLE redness yesterday as well as fever to 102 and that she had significant pain with extension of redness to groin today; prompting visit. Patient has been evaluated for this same in the past and treated in hospital with clindamycin. Patient has been MRSA positive in the past. The patient denies chest pain, shortness of breath, headache and dizziness. Denies chills, nausea, vomit, diarrhea and constipation. Denies dysuria, frequency, urgency and hematuria. Past History - Past Medical History Allergies/Adverse Reactions: Allergies Allergy/AdvReac Type Severity Reaction Status Date / Time zinc Allergy Mild Verified 10/09/18 20:01 Bleach (Sodium Hypochlorite) Allergy Verified 10/09/18 20:01 Penicillins Allergy Verified 10/09/18 20:01 tuna fish Allergy Severe Uncoded 10/09/18 20:01 brussel sprouts Allergy Uncoded 10/09/18 20:01 lactose-intolerance AdvReac Severe Uncoded 10/09/18 20:01 Home Medications: Ambulatory Orders Aripiprazole [Abilify] 10 mg PO AM 03/14/15 Baclofen 10 mg PO TID 03/14/15 Budesonide/Formeterol Fumarate [SYMBICORT 160/4.5mcg -] 1 puff IH BID 03/14/15 Cholecalciferol (Vitamin D3) [Vitamin D3] 50,000 units PO WEEKLY 03/14/15 Divalproex Sodium [Depakote ER] 750 mg PO BID 03/14/15 Levothyroxine [Synthroid -] 50 mcg PO DAILY 03/14/15 Acetaminophen [Tylenol .Regular Strength -] 325 mg PO QID PRN 07/28/18 Albuterol 2.5/Ipratropium 0.5 [Duoneb -] 1 amp NEB QID PRN 07/28/18 Furosemide [Lasix -] 80 mg PO AM 07/28/18 Lurasidone HCl [Latuda] 60 mg PO DAILY 07/28/18 Pravastatin Sodium [Pravachol] 40 mg PO HS 07/28/18 Diphenhydramine HCl [Benadryl Capsule -] 25 mg PO Q6H PRN #30 capsule 08/04/18 Lactobacillus Acidophilus [Acidophilus] 100 mg PO TID #0 cap 08/04/18 Tolnaftate 1% Powder [Tinactin 1% Powder -] 1 applic TP BID #1 btl 08/04/18 Allopurinol [Zyloprim -] 300 mg PO DAILY 10/09/18 Emollient Combination No.72 [Eucerin Intensive Repair] 250 ml TP BID 10/09/18 FENTANYL 12mcg PATCH [DURAGESIC 12mcg PATCH -] 1 each TD Q72H 10/09/18 Gabapentin [Neurontin] 300 mg PO TID 10/09/18 Metformin HCl [Glucophage] 500 mg PO AM 10/09/18 Naproxen [Naprosyn -] 500 mg PO BID PRN 10/09/18 Sertraline HCl [Zoloft] 100 mg PO AM 10/09/18 Zinc Oxide 20% Topical Oint 454 gm NR TID 10/09/18 Cardiac Disorders: Yes (abnormal ekg,acd) COPD: Yes GI Disorders: Yes (gerd) HTN: Yes Hypercholesterolemia: Yes Psychiatric Problems: Yes (bipolar, anxiety,depression) Seizures: Yes Thyroid Disease: Yes (hypothyroid) - Suicide/Smoking/Psychosocial Hx Smoking History: Never smoked Have you smoked in the past 12 months: No Information on smoking cessation initiated: No Hx Alcohol Use: Yes (Social) Drug/Substance Use Hx: No Substance Use Type: None Review of Systems - Review of Systems Comments:: 10/09/18 20:45 GENERAL/CONSTITUTIONAL: +Fever as described. No weakness. HEAD, EYES, EARS, NOSE AND THROAT: No change in vision. No ear pain or discharge. No sore throat. CARDIOVASCULAR: No chest pain or shortness of breath RESPIRATORY: No cough, wheezing, or hemoptysis. GASTROINTESTINAL: No nausea, vomiting, diarrhea or constipation. GENITOURINARY: No dysuria, frequency, or change in urination. MUSCULOSKELETAL: +LLE pain exacerbated since yesterday. SKIN: No rash NEUROLOGIC: No headache, vertigo, loss of consciousness, or change in strength/ sensation. ENDOCRINE: No increased thirst. No abnormal weight change HEMATOLOGIC/LYMPHATIC: No anemia, easy bleeding, or history of blood clots. ALLERGIC/IMMUNOLOGIC: No hives or skin allergy. *Physical Exam - Vital Signs Last Vital Signs Temp Pulse Resp BP Pulse Ox 98.1 F 115 H 22 H 124/88 97 10/09/18 19:00 10/09/18 19:00 10/09/18 19:00 10/09/18 19:00 10/09/18 19:00 - Physical Exam Comments: 10/09/18 20:59 GENERAL: +Patient super morbidly obese. Awake, alert, and fully oriented, in no acute distress HEAD: No signs of trauma, normocephalic, atraumatic EYES: PERRLA, EOMI, sclera anicteric, conjunctiva clear ENT: Auricles normal inspection, hearing grossly normal, nares patent, oropharynx clear without exudates. Moist mucosa NECK: Normal ROM, supple, no lymphadenopathy, JVD, or masses LUNGS: No distress, speaks full sentences, clear to auscultation bilaterally HEART: Regular rate and rhythm, normal S1 and S2, no murmurs, rubs or gallops, peripheral pulses normal and equal bilaterally. ABDOMEN: Soft, nontender, normoactive bowel sounds. No guarding, no rebound. No masses EXTREMITIES: +LLE significant for florid cellulitis including numerous fluid filled bullae. Midline noted to RUE. NEUROLOGICAL: Cranial nerves II through XII grossly intact. Normal speech, normal gait, no focal sensorimotor deficits SKIN: Warm, Dry, normal turgor, no rashes or lesions noted. ED Treatment Course - LABORATORY CBC & Chemistry Diagram: 10/09/18 21:20 10/09/18 21:20 Medical Decision Making - Medical Decision Making 10/09/18 22:14 Ms. Cedeno is a 43 yo female w/ pmh as described who presents for evaluation of impressive cellulitis to LLE w/ additional consitutional symptoms of infection. Patient evaluated using sepsis protocol w/ additional wound culture done. Patient started on clindamycin IV per ID recommendations during previous visit for same problem. Patient currently pending laboratory evaluation for admission for IV ABX. 10/10/18 00:27 Patient labs as below concerning for elevated WBC, elevated lactate, elevated liver enzymes, and SHARIF as below. Patient s/p 2L NS and nursing working on 2nd lactate at this time. Patient discussed with hospitalist who suggested ICU consult. ICU consulted who do not believe patient warrants unit at this time however will re-evaluate. Patient admitted for further care. 10/10/18 00:59 Discussed patient w/ inpatient team who believe patient should be transported to facility capable of CT scan of patient's leg for r/o necrotizing fasciitis. Will contact transfer center for possible transfer. 10/10/18 01:51 Patient discussed with [facility] physician Dr. Fernandez who accepted patient for transfer. Patient consented. 10/10/18 02:05 Patient pending transport. Laboratory Results - last 24 hr 10/09/18 10/09/18 10/09/18 21:20 21:20 21:20 WBC 17.8 H RBC 3.89 Hgb 10.4 L Hct 33.1 MCV 85.0 MCH 26.8 MCHC 31.6 L RDW 16.8 H Plt Count 245 MPV 9.3 D Absolute Neuts (auto) 14.9 H Total Counted 100 Neutrophils % 83.8 H D Neutrophils % (Manual) 82.0 Band Neutrophils % 5.0 Lymphocytes % 11.6 D Lymphocytes % (Manual) 11.0 Monocytes % 3.4 L Monocytes % (Manual) 2 L Eosinophils % 0.5 D Basophils % 0.7 Nucleated RBC % 0 Hypochromia 1+ Platelet Estimate Adequate Platelet Comment No clumping noted Polychromasia 1+ PT with INR 13.70 H INR 1.16 H PTT (Actin FS) 35.6 VBG pH 7.36 POC VBG pCO2 51.9 H POC VBG pO2 81.8 H VBG HCO3 28.4 VBG O2 Sat (Jasiel) 95.8 H VBG Base Excess 2.8 H Sodium Potassium Chloride Carbon Dioxide Anion Gap BUN Creatinine Est GFR (CKD-EPI)AfAm Est GFR (CKD-EPI)NonAf Random Glucose Lactic Acid Calcium Total Bilirubin AST ALT Alkaline Phosphatase Troponin I Total Protein Albumin Serum , Qual 10/09/18 10/09/18 10/09/18 21:20 21:20 21:20 WBC RBC Hgb Hct MCV MCH MCHC RDW Plt Count MPV Absolute Neuts (auto) Total Counted Neutrophils % Neutrophils % (Manual) Band Neutrophils % Lymphocytes % Lymphocytes % (Manual) Monocytes % Monocytes % (Manual) Eosinophils % Basophils % Nucleated RBC % Hypochromia Platelet Estimate Platelet Comment Polychromasia PT with INR INR PTT (Actin FS) VBG pH POC VBG pCO2 POC VBG pO2 VBG HCO3 VBG O2 Sat (Jasiel) VBG Base Excess Sodium 132 L Potassium 4.7 Chloride 91 L Carbon Dioxide 30 Anion Gap 11 BUN 59 H Creatinine 3.0 H Est GFR (CKD-EPI)AfAm 21.32 Est GFR (CKD-EPI)NonAf 18.40 Random Glucose 165 H Lactic Acid 2.4 H* Calcium 8.6 Total Bilirubin 1.1 H AST 126 H ALT 136 H Alkaline Phosphatase 196 H Troponin I 0.02 Total Protein 7.0 Albumin 2.6 L Serum , Qual 10/09/18 21:20 WBC RBC Hgb Hct MCV MCH MCHC RDW Plt Count MPV Absolute Neuts (auto) Total Counted Neutrophils % Neutrophils % (Manual) Band Neutrophils % Lymphocytes % Lymphocytes % (Manual) Monocytes % Monocytes % (Manual) Eosinophils % Basophils % Nucleated RBC % Hypochromia Platelet Estimate Platelet Comment Polychromasia PT with INR INR PTT (Actin FS) VBG pH POC VBG pCO2 POC VBG pO2 VBG HCO3 VBG O2 Sat (Jasiel) VBG Base Excess Sodium Potassium Chloride Carbon Dioxide Anion Gap BUN Creatinine Est GFR (CKD-EPI)AfAm Est GFR (CKD-EPI)NonAf Random Glucose Lactic Acid Calcium Total Bilirubin AST ALT Alkaline Phosphatase Troponin I Total Protein Albumin Serum , Qual Negative *DC/Admit/Observation/Transfer Diagnosis at time of Disposition: Obesity, morbid, BMI 50 or higher, SHARIF (acute kidney injury) Cellulitis Qualifiers: Site of cellulitis: extremity Site of cellulitis of extremity: lower extremity Laterality: left Qualified Code(s): L03.116 - Cellulitis of left lower limb - Discharge Dispostion Disposition: TRANSFER ACUTE CARE/OTHER HOSP Condition at time of disposition: Fair Decision to Admit order: Yes - Referrals - Patient Instructions - Post Discharge Activity
[2018-10-09] MEDS ORDERED: ACETAMINOPHEN 1000 MG/100 ML VIAL (NON FORMULARY) IVPB ONE (20:34)
[2018-10-09 20:41] VITALS: BMI 83.4
[2018-10-09] MEDS ORDERED: ACETAMINOPHEN INJECTION 100 ML IVPB ONE (20:54)
[2018-10-09] MEDS ORDERED: SODIUM CHLORIDE 1,000 ML IV STA ×2 (21:02→22:23)
[2018-10-09] MEDS ORDERED: CLINDAMYCIN 900 MG PREMIX IVPB 900 MG/50 ML BAG IVPB ONE ×2 (21:11→21:59)
[2018-10-09 21:42] LABS: VENOUS PC02 51.9 mmHg (41-51); VENOUS PH 7.36 (7.31-7.41); VENOUS PO2 81.8 mmHg (30-40)
[2018-10-09 21:45] LABS: BASO % 0.7 % (0-2.0); EOS % 0.5 % (0-4.5); HEMATOCRIT 33.1 % (32.4-45.2); HEMOGLOBIN 10.4 GM/dL (10.7-15.3); LYMPH % 11.6 % (8-40); MCH 26.8 pg (25.7-33.7); MCHC 31.6 g/dl (32.0-36.0); MEAN PLT VOLUME 9.3 fl (7.5-11.1); MONO % 3.4 % (3.8-10.2); NEUT % 83.8 % (42.8-82.8); PLATELET COUNT 245 K/MM3 (134-434); RBC 3.89 M/mm3 (3.60-5.2); RDW 16.8 % (11.6-15.6); WHITE BLOOD COUNT 17.8 K/mm3 (4.0-10.0)
[2018-10-09 21:59] LABS: INR 1.16 (0.83-1.09); PROTHROMBIN TIME (PATIENT) 13.7 SEC (9.7-13.0)
[2018-10-09 22:01] LABS: ACTIVATED PTT 35.6 SECONDS (25.2-36.5)
[2018-10-09 22:12] LABS: PLATELET ESTIMATE ADEQUATE
[2018-10-09 22:16] LABS: ALBUMIN 2.6 g/dl (3.4-5.0); BILIRUBIN,TOTAL 1.1 mg/dL (0.2-1); CALCIUM 8.6 mg/dL (8.5-10.1); POTASSIUM 4.7 mmol/L (3.5-5.1)
[2018-10-09 23:00] LABS: EPI CELLS 13.8 /HPF (0-5/HPF); URINE APPEARANCE CLOUDY; URINE BACTERIA 3.2 /hpf (NEGATIVE); URINE BILIRUBIN NEGATIVE (NEGATIVE); URINE COLOR DK YELLOW; URINE GLUCOSE (UA) NEGATIVE (NEGATIVE); URINE KETONE TRACE (NEGATIVE); URINE LEUK ESTERASE 1+ (NEGATIVE); URINE NITRITE NEGATIVE (NEGATIVE); URINE PROTEIN NEGATIVE (NEGATIVE); URINE WBC 1 /hpf (0-5)
--- NOTE | 2018-10-09 23:14 | PDOC ---
Documentation entered by Ousmane Smiley SCRIBE, acting as scribe for Radha Gannon MD. Radha Gannon MD: This documentation has been prepared by the Baljit hester Daniel, SCRIBE, under my direction and personally reviewed by me in its entirety. I confirm that the documentation accurately reflects all work, treatment, procedures, and medical decision making performed by me. Attending Attestation - Resident Resident Name: YenniferBentley - ED Attending Attestation I have performed the following: I have examined & evaluated the patient, The case was reviewed & discussed with the resident, I agree w/resident's findings & plan, Exceptions are as noted - HPI HPI: 10/09/18 21:43 The patient is a 43 year old female with a past medical history of HTN, hypothyroidism, COPD, depression, bipolar disorder, and morbid obesity brought in by EMS today from [facility] for evaluation of left lower extremity redness and pain. The patient reports that her left lower extremity pain and redness began yesterday and notes associated fever which went as high as 102. She notes that the pain is worse with movement. As per medical records the patient has been seen before for similar symptoms and has been MRSA positive. Patient denies headache, lightheadedness. Denies fever, chills. Denies chest pain, shortness of breath. Denies nausea, vomiting, diarrhea, abdominal pain. - Physicial Exam PE: 10/09/18 22:54 agree with resident exam - Medical Decision Making 10/09/18 22:13 43yo F hx morbid obesity, cellulitis presents to the ED from [place] with cellulitis to entire LLE Pt tachycardic, with wbc 18, left shift Pt covered with clindamycin in the past (has PCN allergy), covered empricially with 900mg IV clinda today Pt admitted to Dr. Flaherty for further mgmt, he is at bedside evaluating pt Case discussed in detail with admitting physician including history, physical exam and ancillary studies. Admitting physician has assumed care for the patient, will follow all pending diagnostics and will complete the evaluation and treatment.
--- NOTE | 2018-10-09 23:28 | HP ---
Admitting History and Physical - Primary Care Physician PCP: Liseth Reyez - Admission Chief Complaint: worsenin lower ext edema, bula, erythema, and clear discharge History of Present Illness: this is a 43 y/o f class III obesity presented to the hospital for worsening lower extremity pain, edema, erythema, and bula, associated with fever. patient stated that some of her symptoms started yesterday. she was recently admitted for cellulitis found to have MRSA sensitive to clindamycin. 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: Peripheral Neuropathy, Vertigo Cardiovascular: Yes: HTN, Hyperlipdemia Pulmonary: Yes: COPD Gastrointestinal: Yes: GERD Psych: Yes: Anxiety, Bipolar, Depression Endocrine: Yes: Hypothyroidism - Past Surgical History Past Surgical History: Yes: (x2), Hysterectomy (laprascopic 03/02 secondary fibroids and vaginal bleeding at [facility]) - Smoking History Smoking history: Never smoked Have you smoked in the past 12 months: No - Alcohol/Substance Use Hx Alcohol Use: Yes (Social) History of Substance Use: reports: None - Social History ADL: Support Services Occupation: disabled History of Recent Travel: No <Mendel Flaherty - Last Filed: 10/10/18 00:30> Home Medications <Mendel Flaherty - Last Filed: 10/10/18 00:30> <Jarek Puga - Last Filed: 10/10/18 08:44> - Allergies Allergies/Adverse Reactions: Allergies Allergy/AdvReac Type Severity Reaction Status Date / Time zinc Allergy Mild Verified 10/09/18 20:01 Bleach (Sodium Hypochlorite) Allergy Verified 10/09/18 20:01 Penicillins Allergy Verified 10/09/18 20:01 tuna fish Allergy Severe Uncoded 10/09/18 20:01 brussel sprouts Allergy Uncoded 10/09/18 20:01 lactose-intolerance AdvReac Severe Uncoded 10/09/18 20:01 - Home Medications Home Medications: Ambulatory Orders Aripiprazole [Abilify] 10 mg PO AM 03/14/15 Baclofen 10 mg PO TID 03/14/15 Budesonide/Formeterol Fumarate [SYMBICORT 160/4.5mcg -] 1 puff IH BID 03/14/15 Cholecalciferol (Vitamin D3) [Vitamin D3] 50,000 units PO WEEKLY 03/14/15 Divalproex Sodium [Depakote ER] 750 mg PO BID 03/14/15 Levothyroxine [Synthroid -] 50 mcg PO DAILY 03/14/15 Acetaminophen [Tylenol .Regular Strength -] 325 mg PO QID PRN 07/28/18 Albuterol 2.5/Ipratropium 0.5 [Duoneb -] 1 amp NEB QID PRN 07/28/18 Furosemide [Lasix -] 80 mg PO AM 07/28/18 Lurasidone HCl [Latuda] 60 mg PO DAILY 07/28/18 Pravastatin Sodium [Pravachol] 40 mg PO HS 07/28/18 Diphenhydramine HCl [Benadryl Capsule -] 25 mg PO Q6H PRN #30 capsule 08/04/18 Lactobacillus Acidophilus [Acidophilus] 100 mg PO TID #0 cap 08/04/18 Tolnaftate 1% Powder [Tinactin 1% Powder -] 1 applic TP BID #1 btl 08/04/18 Allopurinol [Zyloprim -] 300 mg PO DAILY 10/09/18 Emollient Combination No.72 [Eucerin Intensive Repair] 250 ml TP BID 10/09/18 FENTANYL 12mcg PATCH [DURAGESIC 12mcg PATCH -] 1 each TD Q72H 10/09/18 Gabapentin [Neurontin] 300 mg PO TID 10/09/18 Metformin HCl [Glucophage] 500 mg PO AM 10/09/18 Naproxen [Naprosyn -] 500 mg PO BID PRN 10/09/18 Sertraline HCl [Zoloft] 100 mg PO AM 10/09/18 Zinc Oxide 20% Topical Oint 454 gm NR TID 10/09/18 Family Disease History - Family Disease History Family Disease History: Other: Father (living with hx arthritis), Mother ( living with htn, hx fibroids), Brother (2 brothers healthy and living) <Mendel Flaherty - Last Filed: 10/10/18 00:30> Review of Systems - Review of Systems Constitutional: reports: Chills Eyes: reports: No Symptoms HENT: reports: No Symptoms Neck: reports: No Symptoms Cardiovascular: reports: No Symptoms Respiratory: reports: No Symptoms Gastrointestinal: reports: No Symptoms Genitourinary: reports: No Symptoms Integumentary: reports: Blister, Bruising, Change in Color, Erythema, Lesions, Wound, Other (patient has multiple bulla, on the leg, and foot of the left leg, erythem all the way to the gron) <Mendel Flaherty - Last Filed: 10/10/18 00:30> Physical Examination Vital Signs: Vital Signs Temperature 98.1 F 10/09/18 19:00 Pulse Rate 115 H 10/09/18 19:00 Respiratory Rate 22 H 10/09/18 19:00 Blood Pressure 124/88 10/09/18 19:00 O2 Sat by Pulse Oximetry (%) 98 10/09/18 20:00 Constitutional: Yes: Obese, Poor Hygeine Eyes: Yes: WNL, Conjunctiva Clear, EOM Intact HENT: Yes: WNL, Atraumatic, Normocephalic Neck: Yes: WNL, Supple, Trachea Midline Cardiovascular: Yes: WNL, Regular Rate and Rhythm, S1, S2 Respiratory: Yes: WNL, Regular, CTA Bilaterally Gastrointestinal: Yes: WNL, Normal Bowel Sounds, Soft Extremities: Yes: Calf Tenderness, Erythema, Other (patient has multiple bulla, on the leg, and foot of the left leg, erythem all the way to the gron) Edema: Yes Edema: LLE: 4+, RLE: 3+ Peripheral Pulses WNL: Yes Integumentary: Yes: Erythema, Incision, Laceration, Skin Tear, Tattoos (patient has multiple bulla, on the leg, and foot of the left leg, erythem all the way to the gron) Wound/Incision: Yes: Draining Neurological: Yes: WNL, Alert, Oriented ...Motor Strength: WNL Psychiatric: Yes: WNL, Alert, Oriented Labs: CBC, BMP 10/09/18 21:20 10/09/18 21:20 <ReynoldMendel - Last Filed: 10/10/18 00:30> Vital Signs: Vital Signs Temperature 98.8 F 10/10/18 03:05 Pulse Rate 105 H 10/10/18 03:05 Respiratory Rate 22 H 10/10/18 03:05 Blood Pressure 108/62 10/10/18 03:05 O2 Sat by Pulse Oximetry (%) 98 10/10/18 03:05 Labs: CBC, BMP 10/09/18 21:20 10/09/18 21:20 <Jarek Puga - Last Filed: 10/10/18 08:44> Imaging - Results X-ray: Report Reviewed, Image Reviewed <Mendel Flaherty - Last Filed: 10/10/18 00:30> Problem List - Problems (1) SHARIF (acute kidney injury) Assessment/Plan: 2/2 to Sepsis aggressive IVF hydration - patient is losing fluid via the skin and the bulla will monitor the creatinine function Code(s): N17.9 - ACUTE KIDNEY FAILURE, UNSPECIFIED (2) Cellulitis Code(s): L03.90 - CELLULITIS, UNSPECIFIED Qualifiers: Site of cellulitis: extremity Site of cellulitis of extremity: lower extremity Laterality: left Qualified Code(s): L03.116 - Cellulitis of left lower limb (3) Obesity, morbid, BMI 50 or higher Assessment/Plan: diet and referral for barriatric surgery Code(s): E66.01 - MORBID (SEVERE) OBESITY DUE TO EXCESS CALORIES (4) Anemia Code(s): D64.9 - ANEMIA, UNSPECIFIED Qualifiers: Anemia type: iron deficiency Iron deficiency anemia type: inadequate dietary iron intake Qualified Code(s): D50.8 - Other iron deficiency anemias (5) Bipolar 2 disorder, major depressive episode Assessment/Plan: stable will continue with medicaiton Code(s): F31.81 - BIPOLAR II DISORDER (6) Chronic pain Assessment/Plan: will continue home medication Code(s): G89.29 - OTHER CHRONIC PAIN (7) Depression Assessment/Plan: c/w SSRI Code(s): F32.9 - MAJOR DEPRESSIVE DISORDER, SINGLE EPISODE, UNSPECIFIED Qualifiers: Depression Type: major depressive disorder (8) Diabetes type 2, uncontrolled Assessment/Plan: Insulin slidind scale diebetic diet Code(s): E11.65 - TYPE 2 DIABETES MELLITUS WITH HYPERGLYCEMIA (9) GERD (gastroesophageal reflux disease) Assessment/Plan: c/.w pantaprezole 40mg daily Code(s): K21.9 - GASTRO-ESOPHAGEAL REFLUX DISEASE WITHOUT ESOPHAGITIS (10) HTN (hypertension) Assessment/Plan: will hold off on medication due to sepsis and SHARIF Code(s): I10 - ESSENTIAL (PRIMARY) HYPERTENSION (11) Hyperlipidemia Assessment/Plan: c/w statin Code(s): E78.5 - HYPERLIPIDEMIA, UNSPECIFIED (12) Hypothyroid Assessment/Plan: c/w levothyroxine Code(s): E03.9 - HYPOTHYROIDISM, UNSPECIFIED (13) Leg wound, left Code(s): S81.802A - UNSPECIFIED OPEN WOUND, LEFT LOWER LEG, INITIAL ENCOUNTER (14) Non-healing wound Code(s): CUK4561 - (15) Lactic acidosis Assessment/Plan: 2/2 to cellulitis of the lower ext Code(s): E87.2 - ACIDOSIS (16) Severe systemic inflammatory response syndrome (SIRS) Assessment/Plan: 2/2 to the cellulitis with bulla wound care Code(s): R65.10 - SIRS OF NON-INFECTIOUS ORIGIN W/O ACUTE ORGAN DYSFUNCTION (17) Sepsis due to cellulitis Assessment/Plan: SIRS with sepsis 2/2 cellulitis of the left lower ext admit patient to the med-surg start broad spectrm antibiotics consult ID for further management start the patient on clindamycin (last culture sensitive) follow up blood culture place the patient on isolation for hx of MRSA aggressive IV fluid hydration wound nurse evaluation Code(s): L03.90 - CELLULITIS, UNSPECIFIED; A41.9 - SEPSIS, UNSPECIFIED ORGANISM <Mendel Flaherty - Last Filed: 10/10/18 00:30> Assessment/Plan Continuation from other NF Attending: *Pateint transferred [facility] for ongoing care; discussed possibility of other accomodations being made in case above weight limit. Due to rapid progression of bullae over a 12 hour period, pain, rapidly progressing bullae with some mottling, we have concern for underlying nec fasc. Taking care to protect kidneys; likely prerenal SHARIF due to sepsis. Providing high rate IVF and if pressors are needed CVC will ultimately be necessated though they may be temporarily delivered via her PICC line. Discussed with ER Discussed with Dr. Flaherty <Jarek Puga - Last Filed: 10/10/18 08:44>
[2018-10-09 23:34] LABS: URINE RBC 4.6 /hpf (0-4)
[2018-10-09 23:40] LABS: URINE CRYSTALS AMORPHOUS URATES /hpf
[2018-10-09 23:41] LABS: HYALINE CASTS FEW /lpf (0-8)
[2018-10-09] MEDS ORDERED: ALBUTEROL SO4 2.5/IPRATROPIUM 0.5 INH SOL 3 ML VIAL.NEB. NEB PRN (23:49)
[2018-10-10] MEDS ORDERED: SODIUM CHLORIDE 1,000 ML IV STA (00:28)
[2018-10-10] MEDS ORDERED: SODIUM CHLORIDE 1,000 ML IV SCH (00:45)
[2018-10-10] MEDS ORDERED: AZTREONAM 2 GM in DEXTROSE 5%-WATER 100 ML IVPB ONE (00:56)
[2018-10-10] MEDS ORDERED: VANCOMYCIN 1 GM in D5W (PRE-DOCKED) 1,000 MG/250 ML IVPB ONE (00:56)
[2018-10-10] MEDS ORDERED: VANCOMYCIN 1 GRAM (PRE-DOCKED) 1,000 MG/250 ML BAG IVPB ONE (01:02)
--- NOTE | 2018-10-10 01:04 | CONSULT ---
Consult Consult Specialty:: Pulm/CCM Referred by:: Dr. De Oliveira Reason for Consultation:: Severe sepsis - History of Present Illness History of Present Illness: 43 yo F h/o COPD, asthma, morbid obesity, HTN, hypothyroidism, depression, bipolar BIBEMS from [facility] for worsening LLE pain, redness, and drainage x 1 day. Patient was admitted from 07/28 to 08/04 for LLE cellulitis and non-healing wound and discharged to [facility] with PICC. She has been receiving IV clinda and aztreonam at the [facility]. Evaluated by surgery and no surgical intervention was needed during hospitalization. Yesterday patient noted the pain and redness got progressively worse with active drainage of fluid collection bullae. Denies chest pain, shortness of breath, n/v, urinary or bowel sx. 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 Cardio/Vascular: Yes: HTN, Hyperlipdemia Pulmonary: Yes: COPD Gastrointestinal: Yes: GERD Psych: Yes: Anxiety, Bipolar, Depression Endocrine: Yes: Hypothyroidism - Past Surgical History Past Surgical History: Yes: (x2), Hysterectomy (laprascopic 03/02 secondary fibroids and vaginal bleeding at [facility]) - Alcohol/Substance Use Hx Alcohol Use: Yes (Social) History of Substance Use: reports: None - Smoking History Smoking history: Never smoked Have you smoked in the past 12 months: No - Social History Usual Living Arrangement: Prison ADL: Support Services Occupation: disabled History of Recent Travel: No Home Medications - Allergies Allergies/Adverse Reactions: Allergies Allergy/AdvReac Type Severity Reaction Status Date / Time zinc Allergy Mild Verified 10/09/18 20:01 Bleach (Sodium Hypochlorite) Allergy Verified 10/09/18 20:01 Penicillins Allergy Verified 10/09/18 20:01 tuna fish Allergy Severe Uncoded 10/09/18 20:01 brussel sprouts Allergy Uncoded 10/09/18 20:01 lactose-intolerance AdvReac Severe Uncoded 10/09/18 20:01 - Home Medications Home Medications: Ambulatory Orders Aripiprazole [Abilify] 10 mg PO AM 03/14/15 Baclofen 10 mg PO TID 03/14/15 Budesonide/Formeterol Fumarate [SYMBICORT 160/4.5mcg -] 1 puff IH BID 03/14/15 Cholecalciferol (Vitamin D3) [Vitamin D3] 50,000 units PO WEEKLY 03/14/15 Divalproex Sodium [Depakote ER] 750 mg PO BID 03/14/15 Levothyroxine [Synthroid -] 50 mcg PO DAILY 03/14/15 Acetaminophen [Tylenol .Regular Strength -] 325 mg PO QID PRN 07/28/18 Albuterol 2.5/Ipratropium 0.5 [Duoneb -] 1 amp NEB QID PRN 07/28/18 Furosemide [Lasix -] 80 mg PO AM 07/28/18 Lurasidone HCl [Latuda] 60 mg PO DAILY 07/28/18 Pravastatin Sodium [Pravachol] 40 mg PO HS 07/28/18 Diphenhydramine HCl [Benadryl Capsule -] 25 mg PO Q6H PRN #30 capsule 08/04/18 Lactobacillus Acidophilus [Acidophilus] 100 mg PO TID #0 cap 08/04/18 Tolnaftate 1% Powder [Tinactin 1% Powder -] 1 applic TP BID #1 btl 08/04/18 Allopurinol [Zyloprim -] 300 mg PO DAILY 10/09/18 Emollient Combination No.72 [Eucerin Intensive Repair] 250 ml TP BID 10/09/18 FENTANYL 12mcg PATCH [DURAGESIC 12mcg PATCH -] 1 each TD Q72H 10/09/18 Gabapentin [Neurontin] 300 mg PO TID 10/09/18 Metformin HCl [Glucophage] 500 mg PO AM 10/09/18 Naproxen [Naprosyn -] 500 mg PO BID PRN 10/09/18 Sertraline HCl [Zoloft] 100 mg PO AM 10/09/18 Zinc Oxide 20% Topical Oint 454 gm NR TID 10/09/18 Family Disease History - Family Disease History Family Disease History: Other: Father (living with hx arthritis), Mother ( living with htn, hx fibroids), Brother (2 brothers healthy and living) Review of Systems - Review of Systems Constitutional: reports: Chills, Fever Cardiovascular: denies: Chest Pain Gastrointestinal: denies: Abdominal Pain, Diarrhea Musculoskeletal: reports: Back Pain, Decreased ROM, Extremity Pain Integumentary: reports: Blister, Erythema, Lesions, Wound Neurological: denies: Change in LOC, Seizure Physical Exam Vital Signs: Vital Signs Temperature 98.1 F 10/09/18 19:00 Pulse Rate 115 H 10/09/18 19:00 Respiratory Rate 22 H 10/09/18 19:00 Blood Pressure 124/88 10/09/18 19:00 O2 Sat by Pulse Oximetry (%) 98 10/09/18 20:00 Constitutional: Yes: Mild Distress Cardiovascular: Yes: Tachycardia, S1, S2. No: Murmur Respiratory: Yes: Diminished, Poor Air Entry Gastrointestinal: Yes: Abdomen, Obese Extremities: Yes: Other (extremely erythematous and edematous LLE with multiple yellow fluid collected bullae. 1-2 of them popped and actively draining.) Edema: Yes Edema: LLE: 3+, RLE: 3+ Neurological: Yes: Alert, Oriented Labs: CBC, BMP 10/09/18 21:20 10/09/18 21:20 Imaging - Results X-ray: Image Reviewed Assessment/Plan 43 yo F h/o COPD, asthma, morbid obesity, HTN, hypothyroidism, depression, bipolar BIBEMS from [facility] for worsening LLE pain, redness, and drainage x 1 day now being evaluated for ICU admission. ID: severe sepsis 2/2 LLE cellulitis - aggressive fluid resusitation with generous amount of fluid; goal to achieve: 30ml/kg - monitor urine output, goal >=0.5cc/kg/hr - maintain MAP > 65, vasopressor support if needed - trend lactate - cellulitis is likely the source, now covered with broad spectrum abx - mejia culture and ID consult Renal: SHARIF - 2/2 severe sepsis - would cont. fluid resusitation as urine output is normal Pulm: mild respiratory distress; h/o COPD and asthma - VBG unremarkable - likely 2/2 severe sepsis - cont. supplemental O2 - BiPAP PRN CV: HTN, morbid obesity - hold all anti-bp meds Neuro: AAO x 3 - maintaining mentation Recommendation: would cont. aggress fluid resusitation based on patient's weight and cont sepsis protocol. does not require icu level of care but will follow the patient closely and admit her to ICU if she becomes hypotensive or with poor mentation. Harpreet Henderson PGY3 ICU resident Visit type - Emergency Visit Emergency Visit: Yes ED Registration Date: 10/09/18 Care time: The patient presented to the Emergency Department on the above date and was hospitalized for further evaluation of their emergent condition. - New Patient This patient is new to me today: Yes Date on this admission: 10/10/18 - Critical Care Critical Care patient: Yes Total Critical Care Time (in minutes): 35 Critical Care Statement: The care of this patient involved high complexity decision making to prevent further life threatening deterioration of the patient 's condition and/or to evaluate & treat vital organ system(s) failure or risk of failure.
[2018-10-10 04:23] VITALS: BP 108/62; PULSE 105; TEMP 98.8
[2018-10-10] MEDS ORDERED: KETOROLAC TROMETHAMINE 30 MG/1 ML VIAL ONE (05:13)
[2018-10-10] MEDS ORDERED: KETOROLAC TROMETHAMINE 30 MG/1 ML VIAL IVPUSH ONE (05:51)
--- NOTE | 2018-10-10 05:54 | PDOC ---
*Physical Exam - Vital Signs Last Vital Signs Temp Pulse Resp BP Pulse Ox 98.8 F 105 H 22 H 108/62 98 10/10/18 03:05 10/10/18 03:05 10/10/18 03:05 10/10/18 03:05 10/10/18 03:05 ED Treatment Course - LABORATORY CBC & Chemistry Diagram: 10/09/18 21:20 10/09/18 21:20 - ADDITIONAL ORDERS Additional order review: Laboratory Results 10/09/18 10/09/18 10/09/18 21:20 21:20 21:20 PT with INR INR PTT (Actin FS) VBG pH POC VBG pCO2 POC VBG pO2 VBG HCO3 VBG O2 Sat (Jasiel) VBG Base Excess Sodium Potassium Chloride Carbon Dioxide Anion Gap BUN Creatinine Est GFR (CKD-EPI)AfAm Est GFR (CKD-EPI)NonAf Random Glucose Lactic Acid 2.4 H* Calcium Total Bilirubin AST ALT Alkaline Phosphatase Troponin I 0.02 Total Protein Albumin Serum , Qual Negative 10/09/18 10/09/18 10/09/18 21:20 21:20 21:20 PT with INR 13.70 H INR 1.16 H PTT (Actin FS) 35.6 VBG pH 7.36 POC VBG pCO2 51.9 H POC VBG pO2 81.8 H VBG HCO3 28.4 VBG O2 Sat (Jasiel) 95.8 H VBG Base Excess 2.8 H Sodium 132 L Potassium 4.7 Chloride 91 L Carbon Dioxide 30 Anion Gap 11 BUN 59 H Creatinine 3.0 H Est GFR (CKD-EPI)AfAm 21.32 Est GFR (CKD-EPI)NonAf 18.40 Random Glucose 165 H Lactic Acid Calcium 8.6 Total Bilirubin 1.1 H AST 126 H ALT 136 H Alkaline Phosphatase 196 H Troponin I Total Protein 7.0 Albumin 2.6 L Serum , Qual 10/09/18 21:20 RBC 3.89 MCV 85.0 MCHC 31.6 L RDW 16.8 H MPV 9.3 D Neutrophils % 83.8 H D Lymphocytes % 11.6 D Monocytes % 3.4 L Eosinophils % 0.5 D Basophils % 0.7 - Medications Given in the ED: ED Medications Discontinued Medications Generic Name Dose Route Start Last Admin Trade Name Freq PRN Reason Stop Dose Admin Acetaminophen 1,000 mg 10/09/18 20:34 10/09/18 21:15 Ofirmev Injection - IVPB 10/09/18 20:35 1,000 mg ONCE ONE Administration Sodium Chloride 1,000 mls @ 1,000 mls/hr 10/09/18 21:02 10/09/18 21:15 Normal Saline - IV 10/09/18 22:01 1,000 mls/hr ASDIR STA Administration Clindamycin Phosphate 900 mg in 50 mls @ 100 mls/hr 10/09/18 21:11 10/09/18 22:10 Cleocin 900 Mg Premix Ivpb - IVPB 10/09/18 21:40 100 mls/hr ONCE ONE Administration Sodium Chloride 1,000 mls @ 1,000 mls/hr 10/09/18 22:23 10/09/18 23:00 Normal Saline - IV 10/09/18 23:22 1,000 mls/hr ASDIR STA Administration Sodium Chloride 1,000 mls @ 1,000 mls/hr 10/10/18 00:28 10/10/18 00:30 Normal Saline - IV 10/10/18 01:27 1,000 mls/hr ASDIR STA Administration Aztreonam 2 gm/ Dextrose 100 mls @ 100 mls/hr 10/10/18 00:56 10/10/18 03:20 IVPB 10/10/18 01:55 100 mls/hr ONCE ONE Administration Protocol Vancomycin HCl 1,000 mg 10/10/18 00:56 10/10/18 01:25 Vancomycin (Pre-Docked) IVPB 10/10/18 00:57 1,000 mg ONCE ONE Administration Protocol Medical Decision Making - Medical Decision Making 10/10/18 05:52 Pt is being transferred to the [facility]. She complains of leg pain, but already received tylenol and she has low BP, so we don't want to give narcotics prior to her ambulance ride. She never received heparin in the ER, and so toradol is safe at this time. *DC/Admit/Observation/Transfer Diagnosis at time of Disposition: Obesity, morbid, BMI 50 or higher, SHARIF (acute kidney injury) Cellulitis Qualifiers: Site of cellulitis: extremity Site of cellulitis of extremity: lower extremity Laterality: left Qualified Code(s): L03.116 - Cellulitis of left lower limb - Discharge Dispostion Disposition: TRANSFER ACUTE CARE/OTHER HOSP Condition at time of disposition: Fair - Referrals - Patient Instructions - Post Discharge Activity
[2018-10-10] MEDS ORDERED: BACLOFEN 10 MG TABLET (FP) PO SCH (06:00)
[2018-10-10] MEDS ORDERED: GABAPENTIN 300 MG CAPSULE (FP) PO SCH (06:00)
[2018-10-10] MEDS ORDERED: HEPARIN NA (PORCINE) 5,000 UNITS/ML 1ML VIAL SQ SCH (06:00)
[2018-10-10] MEDS ORDERED: LEVOTHYROXINE NA 50 MCG TABLET (FP) PO SCH (07:00)
[2018-10-10] MEDS ORDERED: SERTRALINE HCL 50 MG TABLET (FP) PO SCH (07:00)
[2018-10-10] MEDS ORDERED: ARIPiprazole 10 MG TABLET PO SCH (07:00)
[2018-10-10] MEDS ORDERED: DIVALPROEX NA *ER* EXTEND REL 500 MG TABLET.SA (FP) PO SCH (10:00)
[2018-10-10] MEDS ORDERED: DIVALPROEX 500 MG, DIVALPROEX 250 MG PO SCH (10:00)
[2018-10-10] MEDS ORDERED: LURASIDONE HCL 20 MG TABLET PO SCH (10:00)
[2018-10-10] MEDS ORDERED: BUDESONIDE/FORMETEROL FUMARATE 160/4.5 mcg INHALER IH SCH (10:00)
--- NOTE | 2018-10-10 11:00 | EKG ---
Test Reason : Blood Pressure : / mmHG Vent. Rate : 109 BPM Atrial Rate : 109 BPM P-R Int : 162 ms QRS Dur : 110 ms QT Int : 368 ms P-R-T Axes : 026 085 -02 degrees QTc Int : 495 ms SINUS TACHYCARDIA NONSPECIFIC T WAVE ABNORMALITY ABNORMAL ECG Confirmed by REGAN JOY MD ([id number]) on 10/10/2018 10:59:54 AM Referred By: Confirmed By:REGAN JOY MD
== END 2018-10-10 05:45 | disposition short-term general hospital (02) | DRG 720 ==
LOC: JER 18:58 → JERBED 22:13
PROVIDERS: ADMIT Internal Medicine; ATTEND Internal Medicine
DX: A41.9 Sepsis, unspecified organism (principal); L03.116 Cellulitis of left lower limb; N17.9 Acute kidney failure, unspecified; E66.01 Morbid (severe) obesity due to excess calories; Z68.45 Body mass index [BMI] 70 or greater, adult; J44.9 Chronic obstructive pulmonary disease, unspecified; J45.909 Unspecified asthma, uncomplicated; I10 Essential (primary) hypertension; E03.9 Hypothyroidism, unspecified; F31.81 Bipolar II disorder; E11.65 Type 2 diabetes mellitus with hyperglycemia; G89.29 Other chronic pain; K21.9 Gastro-esophageal reflux disease without esophagitis; E78.5 Hyperlipidemia, unspecified; D50.9 Iron deficiency anemia, unspecified; E87.2 Acidosis
CPT/HCPCS: 36415; 71045-TC-FY; 80053; 81003; 82803; 83605; 84484; 84703; 85025; 85610; 85730; 87040; 87070; 87077; 87086; 87205; 93005; 93010; 99285-25; J0131; J7030